=== PATIENT | male | born 1945 | race Two or more races ===

== ENCOUNTER 2023-03-20 17:27 | Outpatient (RCR) | payer OTHER, SELFPAY ==
[2023-03-15 17:44] LABS: Glucose - Point of Care 235 mg/dl (70-99)
[2023-03-15 18:30] LABS: Glucose - Point of Care 214 mg/dl (70-99)
[2023-03-17 17:29] LABS: Glucose - Point of Care 211 mg/dl (70-99)
[2023-03-17 18:17] LABS: Glucose - Point of Care 141 mg/dl (70-99)
[2023-03-20 17:26] LABS: Glucose - Point of Care 276 mg/dl (70-99)
[2023-03-20 18:16] LABS: Glucose - Point of Care 130 mg/dl (70-99)
== END 2023-03-20 23:59 | disposition home or self-care (01) ==
LOC: CRHB 17:27
PROVIDERS: ATTENDING PHYSICIAN Surgery Vascular Surgery; FAMILY PHYSICIAN Internal Medicine Geriatric Medicine
DX: I70.213 Atherosclerosis of native arteries of extremities with intermittent claudication, bilateral legs (principal); I25.10 Atherosclerotic heart disease of native coronary artery without angina pectoris; Z95.1 Presence of aortocoronary bypass graft
CPT/HCPCS: 82962; 93668

== ENCOUNTER 2023-04-20 08:00 | Day surgery (SDC) | payer OTHER, SELFPAY ==
--- NOTE | 2023-04-18 15:46 | PTCARENOTE ---
Dr. Eugene made aware of abnormal EKG dated 10/21/22- no further action requested.
[2023-04-20] VITALS (21 sets, daily range): BP systolic 16–199; BP diastolic 47–107; BMI 22.3
[2023-04-20 08:30] LABS: Hematocrit 36.2 % (39.0-52.0); Hemoglobin 12.3 g/dL (13.0-18.0); Mean Corpuscular Hgb 30.4 pg (27.0-31.0); Mean Corpuscular Volume 89.6 fL (80.0-94.0); Mean Platelet Volume 10.1 fL (7.4-10.4); Platelet Count 216 10^3/uL (130-400); Red Blood Cell Count 4.04 10^6/uL (4.70-6.10); Red Cell Dist. Width 12.7 % (11.5-14.5); White Blood Cell Count 6.9 10^3/uL (4.8-10.8)
[2023-04-20 08:41] LABS: APTT 29.6 Sec (23.4-35.0); INR 1.09; PT 14.1 Sec (11.4-14.6)
[2023-04-20 08:43] LABS: Blood Urea Nitrogen 20 mg/dl (9-20); Calcium 8.8 mg/dl (8.4-10.2); Carbon Dioxide 26 mmol/L (22-30); Chloride 103 mmol/L (98-107); Estimated Creatinine Clearance 58 ml/min; Glucose 136 mg/dl (70-99); Potassium 4.3 mmol/L (3.5-5.1); Sodium 133 mmol/L (135-145); eGFR > 60.00
[2023-04-20 09:00] LABS: Glucose - Point of Care 146 mg/dl (70-99)
[2023-04-20] MEDS: NSS 500 IV (09:30)
--- NOTE | 2023-04-20 10:17 | W.SUR.PREOP ---
Pre-Operative Surgical Note
-
I have examined this patient prior to the performance of the scheduled procedure.
The patient's condition is unchanged from the time of the current History and
Physical and the patient is able to undergo the scheduled procedure.
--- NOTE | 2023-04-20 11:50 | W.SUR.POST ---
Surgical Immediate Post Op
Note
Pre Op Diagnosis: PAD
Post Op Diagnosis: PAD
Procedure Performed: RLE angiogram, right popliteal balloon angioplasty, balloon angioplasty/stent to SFA x3, LLE angiogram
Primary Surgeon: Bobby
Anesthesia: local and sedation
Estimated Blood Loss: <2cc
Fluids: See anesthesia flow sheet
Drains/Shunts: none
Specimens/Cultures: none
Doppler/Duplex/Angio (Y/N): Y
Complications: none
Operative Findings: palp DP right
--- NOTE | 2023-04-20 12:30 | OR.RPT ---
Operative Report
Operative Report
PROCEDURE DATE: 04/20/2023
Preoperative diagnosis: Severe debilitating right calf claudication resulting in significant inactivity.
Postoperative diagnosis: Same
Procedure:
1. Duplex assisted left common femoral artery cannulation.
2. Right lower extremity arteriogram with third order vessel catheterization of right peroneal artery via left common femoral artery puncture.
3. Primary stent placement right SFA x 3 with Cook Zilver 6 mm x 4 cm PTX drug-eluting stents x 3. (Nonoverlapping).
4. Balloon angioplasty of behind knee popliteal artery with 5 mm angioplasty balloon.
5. Left lower extremity arteriogram.
6. Supervision and interpretation.
Surgeon: Bobby
Registered Dental Hygienist: None
Complications: None
Anesthesia: Local, sedation
Fluoroscopy:
12.6 min
58 mGy
13.25 Gy.cm2
Indications for procedure:
Severe debilitating right calf claudication. Discussed risk/benefits of alternatives of angiography versus continued conservative management. Patient felt severely debilitated and wish for more invasive therapy. He understood all wish to proceed.
Description of procedure:
Patient was identified, brought to the operating room. Placed on the table in the supine position. After the adequate administration of anesthesia, the patient was prepped and draped in the standard surgical fashion. A standard preoperative
timeout was undertaken and everybody was in agreement with the plan.
The left common femoral artery was accessed with a micropuncture kit under direct duplex ultrasound guidance. A 5 Syriac sheath was then advanced over a 0.035 inch wire, and a martinez's hook catheter was advanced into the abdominal aorta.
Aortogram and pelvic angiogram was obtained. Findings as follows:
Infrarenal aorta: Patent with distal plaque/luminal irregularity. Likely resulting in at least 40 to 50% stenosis.
Right common iliac artery: Luminal irregularities, but no significant stenosis.
Right external iliac artery: Luminal irregularities, but no significant stenosis.
Left iliac system was not as well-visualized on this angiogram (was prior visualized on prior procedure).
Using a floppy angled hydrophilic wire, the right common femoral artery was cannulated and the catheter was advanced. Right lower extremity arteriogram was obtained. Findings as follows:
Common femoral artery: Patent with no significant stenosis.
Profunda femoris artery: Patent with proximal likely 50 to 60% stenosis. Early collateralization, main profunda distally was relatively small.
Superficial femoral artery: Patent with moderate stenosis about 3 to 4 cm distal to the origin for a segment of about 4 cm. Then diffuse luminal irregularities and then an additional segment of about 4 cm over which there is a moderate to severe
stenosis. Then again some luminal irregularities and plaque, but no significant stenosis until the distal SFA at which point there was a severe near string-like stenosis.
Popliteal artery: Patent with focal behind the knee severe string-like stenosis.
Anterior tibial artery: Patent with no significant stenosis. Dominant runoff vessel to the foot.
Tibial peroneal trunk: Weakly patent.
Peroneal artery: Weakly patent proximally, but then essentially occluded. No good filling distally.
Posterior tibial artery: Chronically occluded.
At this point I selectively then cannulated the superficial femoral artery. I then exchanged for a Storq wire and an up and over 6 Syriac sheath. I gave the patient an appropriate dose of 5000 units of intravenous heparin. Next, under roadmap
assisted guidance I was able to gain wire access through the SFA stenoses initially with a Storq wire and then with the assistance of a CXI catheter and a flopping on hydrophilic wire. Angiogram confirmed as in the true lumen. I then carefully
under roadmap assisted guidance was able to traverse the popliteal artery severe stenosis and then gain wire access into the proximal TP trunk/peroneal artery. I then passed my catheter and exchanged back for a Storq wire. Next I primarily stented
the mid and distal SFA stenoses with 6 mm x 4 cm Zilver PTX stents (nonoverlapping). These were post angioplastied with a 5 mm balloon. I then used the same 5 mm angioplasty balloon to perform angioplasty with prolonged inflation of the popliteal
artery stenosis. Completion angiogram demonstrated excellent result at the treated sites. The more proximal lesion appeared more than just moderate as well as irregular plaque appearing. Therefore, at this point I placed a 6 mm x 4 cm Zilver PTX
primarily here. This was post angioplastied also with a 5 mm balloon. Completion angiogram now demonstrated excellent result. Preserved flow through the runoff. This point is very satisfied. At this point I withdrew my sheath to the left
external iliac artery. Left lower extremity arteriogram demonstrated good puncture in the left common femoral artery. The left SFA stents were patent. There was in-stent restenosis in the proximal SFA that was at least moderate. Then in the mid
SFA stent there was a more significant severe stenosis over the course of about 3 cm. At this point I was very satisfied. Wires and catheters were withdrawn. The sheath was drawn and manual pressure was applied. Patient was given protamine
reverse the heparin. Hemostasis was fully achieved. The patient tolerated the procedure well. Upon completion he had a palpable 2+ right DP pulse.
[2023-04-20 12:40] LABS: Glucose - Point of Care 140 mg/dl (70-99)
--- NOTE | 2023-04-20 13:00 | PTCARENOTE ---
pt. told several times to keep legs straight and leave head on pillow, pt. contnues to raise head , legs bent
--- NOTE | 2023-04-20 13:21 | W.PN.UPDATE ---
Update Note
Progress Note Update
Patient is awake, alert, oriented just moved from recovery room to preop area. In the recovery room he was adamant about being allowed to go to the bathroom to urinate. He just completed a catheterization procedure with manual pressure applied to
the left groin. Standard protocol is flat bedrest for several hours. Patient is insistent on being allowed to go to the bathroom. He was moved to the recovery room in the hope that he could talk to his significant other. She was just brought up
to the room. When I tried to rationally explain to him the reason for flat bedrest, and if needed we could catheterize but would favor flat bedrest, he insists on getting up and going to the bathroom. He understands the risk that could be severe
of significant bleeding in the groin that could mandate urgent operative repair/significant bleeding. He understands all this and wishes to go to the bathroom. His significant other is at the bedside and has not convinced him otherwise.
--- NOTE | 2023-04-20 13:33 | PTCARENOTE ---
1315 Addendum- Su Marshall COD CLERK and Meron Peraza COD CLERK at bedside pt. demanding to leave , attempting to get out of bed, pt. sitting up, pt. explained the importance of keeping legs flat and straight. Pt. taken to laborer chemical processing with Meron FOLEY and Su FOLEY at
bedside and assumed care of pt and will give report to laborer chemical processing RN
--- NOTE | 2023-04-20 13:53 | W.PN.UPDATE ---
Update Note
Progress Note Update
Pt voided in restroom. Pt now being compliant with nursing staff, allowed us to place IV access and monitor leads.
Prior to this pt was belligerent, threatening to staff in PACU, adrian d eleon was called. Security escorted staff with pt to recovery room. Dr Rosales at bedside. Pt non-compliant with laying flat, monitoring or IV access. I was disconnecting pt's IVF for
him to ambulate to bathroom, he pulled away from me which dislodged his IV access.
New IV placed after pt voided.
Report given to pyridine recovery operator.
Pt re-educated often throughout last hour on need for monitoring post-op, IV access, groin hemostasis and post operative plan for his safety.
--- NOTE | 2023-04-20 14:10 | PTCARENOTE ---
upon arrival to patients room for groin check, patient laying flat but knees bent in air. Patient reminded to leave legs flat. HOB was raised 30 degrees per protocol. Patient offered food and drink, patient refused. Will continue to monitor.
--- NOTE | 2023-04-20 14:50 | PTCARENOTE ---
Patient's blood pressure remaining in 190s systolic. This RN contacted Vascular export clerk for PRN medication. Medication was ordered, however when patient was presented with medication, patient refused. RN relayed information to export clerk, current BP is
175/73. Will continue to monitor.
--- NOTE | 2023-04-20 17:13 | PTCARENOTE ---
1500: Upon entering room for procedure site check, pt continues to bend knees/legs, get OOB w/o assistance, voids w/o difficulty. Continues to decline offered food/beverages. Pt and SO again educated about importance of keeping legs straight/flat.
Groin site remains w/o bleeding or hematoma.
At 1615, pt to car, via , with RN x1, without further incident or change. L groin dressing is clean, dry, intact and w/o hematoma. All D/C instructions provided; patient and SO verbalize understanding. All questions addressed.
--- NOTE | 2023-04-21 13:20 | W.PV.INTER ---
VPI Note
Pre Admission Note
Functional Status: Light Work
Ambulation: Ambulate Independently
Pre Op Medications
Pre Op ASA: Yes
Pre Op Statin: Yes
Pre Op JORGE Inhibitor/ARB: No
Pre Op P2y12 Antagonist: Clopidogrel
Pre Op Beta Blockers: No
Pre Op Chronic Anticoagulant: None
Pre Op Cilostazol: No
Post Op Medications
Post Op ASA: Yes
Post Op Statin: Yes
Post Op JORGE Inhibitor/ARB: No
Post Op P2y12 Antagonist: Clopidogrel
Post Op Beta Blockers: No
Post Op Chronic Anticoagulant: None
Post Op Cilostazol: No
== END 2023-04-20 16:15 | disposition home or self-care (01) ==
LOC: CATH 08:00
PROVIDERS: ATTENDING PHYSICIAN Surgery Vascular Surgery; FAMILY PHYSICIAN Internal Medicine Geriatric Medicine
DX: I70.221 Atherosclerosis of native arteries of extremities with rest pain, right leg (principal); J44.9 Chronic obstructive pulmonary disease, unspecified; I10 Essential (primary) hypertension; I25.10 Atherosclerotic heart disease of native coronary artery without angina pectoris; Z95.5 Presence of coronary angioplasty implant and graft; G47.33 Obstructive sleep apnea (adult) (pediatric); E11.9 Type 2 diabetes mellitus without complications; Z79.4 Long term (current) use of insulin; Z79.02 Long term (current) use of antithrombotics/antiplatelets; F17.210 Nicotine dependence, cigarettes, uncomplicated
CPT/HCPCS: 37226; 75625; 75716; 76937; 80048; 82962; 85027; 85610; 85730; 86850; 86900; 86901; C1725; C1769; C1874; C1887; C1894; Q9967

== ENCOUNTER → 2023-05-08 12:00 | Outpatient (REF) | payer OTHER, SELFPAY ==
--- NOTE | 2023-05-02 12:42 | PN.DIAED02 ---
Referral
DSME Class Series Code: [id number]
Referred For: Diabetes Self-Management Training
PHI Release Authorization Form Signed: Yes
Demographic
(1) Type 2 diabetes mellitus with hyperglycemia
Status: Acute Code(s): E11.65 - Type 2 diabetes mellitus with hyperglycemia
Patient's primary language-: Qatari
Education: Advanced college degree
Occupation: Retired
- Social
Primary Support Person: Self
Primary Care Takers: Self
Living Arrangements: Self
- Learning Methods
Preferred Method: Reading, Video
Glycemic Control
- Blood Glucose Monitoring Assessment
Date: 04/28/23
Blood glucose monitoring at home: Yes
Monitor Brands: Other (Dexcom G6)
- Hypoglycemia Assessment
Patient carries glucose source: No
Patient experiences hypoglycemia: Yes
Frequency: 7 or more times per week
Treatment: candy
- Hemoglobin A1c
Date: 03/21/23
A1C Percentage (%): 9.1
Medical History of Diabetes
Previous Diabetes Education: Yes
How long ago?: > 10 years ago
Previous visit with Dietitian: No
Complications/Comorbidity/Specialist: Diabetic Neuropathy, Heart Disease (CABG-2011), Poor circulation, Pulmonary disease (COPD)
Measures
- Anthropometrics
Height: 5 ft 9 in
Actual Weight: 153 lb 6 oz
- Blood Pressure / Pulse
Blood pressure: 148/69
- Diabetes Management
Medical Management for Diabetes: Flu Vaccination (12/2022), Other (Covid-19 vaccine-12/2022)
Self-Care
- Tobacco Usage
Do you now, or have you ever smoked?: Current every day smoker (Rolls his own tobacco)
Amount (per day): Other (20)
- Alcohol & Drugs Usage
Amount/day: Other ('occasional')
- Meals & Dining
Meals & Dining: Patient skips meals: Yes (discussed)
Primary Food Commercial Real Estate Appraiser: Self
Primary Farm Reporter: Self
Dining Out Frequency: 1-3x per week (2)
- Physical Activity
Physical Limitation: Yes (using walking stick-poor leg strength and balance)
Patient participates in physical Activity: No
- Patient-Self Assessment
Diabetes Knowledge: Good
Feelings About Diabetes: Acceptance
General Health: Fair
Importance of Health: Somewhat
Stress Level: High
Diabetes Interferes With:: Travel
Depression Survey Score: 20
Care Plan
- Education Needs
Patient Education Needs: Diabetes disease process, Chronic complications, Acute complications, Medication, Monitoring, Physical activity, Psychosocial Adjustment, Nutritional management, Goal setting & problem solving
Recommended Diabetes Training Program based on assessment: Outpatient Diabetes Education Program
- Plan of Care
Plan of Care:
Most recent A1C 9.1%, wearing a Dexcom 6. Sees SAYRA Neri for diabetes management. Marita Thomas (friend) here as well.Chapin did not answer all the questions and became defensive/argumentative when asked. For example, when asked do you smoke?,
he stated that he rolls his own cigarettes which is better because it doesn't have added chemicals. Discussed the effect of nicotene on blood vessels, 'oh come on!' was his response. When asked how many per day, he explained that he cannot quantify
the number because the size of the cigarettes he is rolling is different from processed cigarettes- then ended his explanation with '20'. He has used an insulin pump in the past (stopped 3 yrs ago) and is waiting for a new Tandem pump. He takes
Novolog, when asked the dose, he stated he was never told a specific dose and calculates the amount in his head. Asked him to explain, he was unable. I asked what his blood sugar was this morning and how much insulin he took. Stated it was 180 mg/dl
and he took 10 units. Then asked what his blood sugar was now- his scanner was reading 79 mg/dl with the arrow trending down. Performed an Accuchek POC with result 68 mg/dl. Provided him with 2 glucose tablets (all that was available) and a shan
james. Asked what he had consumed for breakfast, he did not eat. Explained that if he doesn't eat a meal, he should not take the insulin. States he has numerous hypo events, unable to clarify how many, explained the detriment of hypo on the brain. He
is not receptive to any information ,feels like since he has had diabetes for 35 years that he knows everything. Concerned to send him home without a dose so asked Gustavo FOLEY to speak with him, she did and contacted SAYRA Hoffman. The plan is for him to
take Novolog 10 units 15 minutes before each meal(which he has not been doing). Suggest paying closer attention to the CGM result and arrows showing the trend and to perform a fingerstick if the CGM is showing 80 with an arrow down. To treat with
Juice or soda or Glucose tabs and recheck in 15 minutes. Directions to class given.
--- NOTE | 2023-05-02 13:50 | PN.DIAED04 ---
Education Record
- Education Record
Class Attended: Class 1 (pre registration 04/28/23 for outpt DSME classes starting 05/08/23)
DSME Class Series Code: [id number]
Instructor: Registered Nurse (Rosa M Rm, RN, BSN, [facility] [place])
Class Curriculum:
Outpatient Diabetes Education Program:
Initial Assessment (45 minutes)
Individualized assessment
Develop personal strategies to promote health and behavior change
Development of diabetes self-management support plan
Class Length (mins): 100
Pre-Program Knowledge: Demonstrates competency
Pre-Test Score (%): 95
Goals
- Goal 1
Being Active: Exercise 15 minutes-3 times per week
Goals To Be Evaluated: Exercise 15 mins-3x/week
- Goal 2
Healthy Eating: Follow meal plan
Goals To Be Evaluated: Follow meal plan
--- NOTE | 2023-05-08 15:34 | PN.DIAED04 ---
Education Record
- Education Record
Class Attended: Class 1
DSME Class Series Code: [id number]
Instructor: Nurse Practitioner (CINDY Ambrocio)
Class Length (mins): 120
Post-Class 1 Test Score (%): 94
--- NOTE | 2023-05-08 15:35 | PN.DIAED14 ---
This is to notify you that your patient with diabetes, WILLIAM SHARP ( 1945), has enrolled in our diabetes self-management classes that are being held at [facility].
These classes will include an introduction to diabetes, diet, medication, exercise and prevention of complications. At the end of our class series, you will receive a report of your patient's participation and progress for your records.
Please contact me at the Diabetes Center, , if there is any particular information regarding your patient that might be helpful to me.
Sincerely,
--- NOTE | 2023-05-10 16:35 | PN.DIAED06 ---
Meal Plans - Regular
- Meal Plan
Diabetic Meal Plan Name: 1800 calories
Breakfast - Total Carbohydrate (grams): 45
Breakfast - Starch Carbohydrate: 0
Breakfast - Fruit Carbohydrate: 0
Breakfast - Milk Carbohydrate: 0
Breakfast - Nonstarchy Vegetables: Yes
Breakfast - Meat/Protein: 1
Breakfast - Fat: 2
Morning Snack - Total Carbohydrate (grams): 15
Morning Snack - Starch Carbohydrate: 0
Morning Snack - Fruit Carbohydrate: 0
Morning Snack - Milk Carbohydrate: 0
Morning Snack - Nonstarchy Vegetables: Yes
Morning Snack - Meat/Protein: 0.5
Morning Snack - Fat: 0
Lunch - Total Carbohydrate (grams): 45
Lunch - Starch Carbohydrate: 0
Lunch - Fruit Carbohydrate: 0
Lunch - Milk Carbohydrate: 0
Lunch - Nonstarchy Vegetables: Yes
Lunch - Meat/Protein: 3
Lunch - Fat: 1
Afternoon Snack - Total Carbohydrate (grams): 15
Afternoon Snack - Starch Carbohydrate: 0
Afternoon Snack - Fruit Carbohydrate: 0
Afternoon Snack - Milk Carbohydrate: 0
Afternoon Snack - Nonstarchy Vegetables: Yes
Afternoon Snack - Meat/Protein: 0.5
Afternoon Snack - Fat: 0
Dinner - Total Carbohydrate (grams): 45
Dinner - Starch Carbohydrate: 0
Dinner - Fruit Carbohydrate: 0
Dinner - Milk Carbohydrate: 0
Dinner - Nonstarchy Vegetables: Yes
Dinner - Meat/Protein: 3
Dinner - Fat: 2
Evening Snack - Total Carbohydrate (grams): 15
Evening Snack - Starch Carbohydrate: 0
Evening Snack - Fruit Carbohydrate: 0
Evening Snack - Milk Carbohydrate: 0
Evening Snack - Nonstarchy Vegetables: Yes
Evening Snack - Meat/Protein: 0
Evening Snack - Fat: 0
== END ==
LOC: DES 12:00
PROVIDERS: ATTENDING PHYSICIAN Physician Assistant
DX: E11.65 Type 2 diabetes mellitus with hyperglycemia (principal)
CPT/HCPCS: 99078

== ENCOUNTER → 2023-05-15 12:00 | Outpatient (REF) | payer OTHER, SELFPAY ==
--- NOTE | 2023-05-15 15:18 | PN.DIAED04 ---
Education Record
- Education Record
Class Attended: Class 2
DSME Class Series Code: [id number]
Instructor: Registered Dietitian (Marcelina Quinn, RD, LDN, CDE)
Class Length (mins): 120
== END ==
LOC: DES 12:00
PROVIDERS: ATTENDING PHYSICIAN Physician Assistant
DX: E11.65 Type 2 diabetes mellitus with hyperglycemia (principal)
CPT/HCPCS: 99078

== ENCOUNTER → 2023-05-22 12:00 | Outpatient (REF) | payer OTHER, SELFPAY ==
--- NOTE | 2023-05-30 11:12 | PN.DIAED04 ---
Education Record
- Education Record
Class Attended: Class 3
DSME Class Series Code: [id number]
Instructor: Registered Dietitian (Marcelina Quinn, RD, LDN, CDE)
Class Length (mins): 120
== END ==
LOC: DES 12:00
PROVIDERS: ATTENDING PHYSICIAN Physician Assistant
DX: E11.65 Type 2 diabetes mellitus with hyperglycemia (principal)
CPT/HCPCS: 99078

== ENCOUNTER → 2023-05-25 15:06 | Outpatient (REF) | payer OTHER, SELFPAY | LOC: RAD 15:06 | PROVIDERS: ATTENDING PHYSICIAN Surgery Vascular Surgery; FAMILY PHYSICIAN Internal Medicine Geriatric Medicine | DX: I73.9 Peripheral vascular disease, unspecified (principal) | CPT/HCPCS: 93922; 93925 ==

== ENCOUNTER → 2023-05-29 12:00 | Outpatient (REF) | payer OTHER, SELFPAY ==
--- NOTE | 2023-06-05 14:47 | PN.DIAED04 ---
Education Record
- Education Record
Class Attended: Class 4
DSME Class Series Code: [id number]
Instructor: Nurse Practitioner (CINDY Ambrocio)
Class Length (mins): 120
== END ==
LOC: DES 12:00
PROVIDERS: ATTENDING PHYSICIAN Physician Assistant
DX: E11.65 Type 2 diabetes mellitus with hyperglycemia (principal)
CPT/HCPCS: 99078

== ENCOUNTER → 2023-06-05 12:00 | Outpatient (REF) | payer OTHER, SELFPAY ==
--- NOTE | 2023-06-06 14:57 | PN.DIAED16 ---
This is to notify you that your patient with diabetes, WILLIAM SHARP ( 1945), has attended the entire series of Diabetes Self-Management Education Classes.
Class 1 (120 minutes): Diabetes Overview - monitoring, stress/psychosocial adjustment, support, goal setting
Class 2 (120 minutes): Meal Planning - serving sizes, menu plans
Class 3 (120 minutes): Introduction to Carbohydrate Counting, Analyzing Food Labels
Class 4 (120 minutes): Medication, Exercise and Activity
Class 5 (120 minutes): Sick Day Management, Strategies to Reduce Complications, Problem Solving, Resources
The following behavioral goals were identified:
Exercise 15 mins-3x/week
Follow meal plan
A follow-up call will be made within three to six months to evaluate attainment of these goals and to check post-program Hemoglobin A1c and overall progress. All class participants are encouraged to contact me if I can be any further assistance in
learning how to manage their diabetes.
Sincerely,
--- NOTE | 2023-06-08 09:34 | PN.DIAED04 ---
Education Record
- Education Record
Class Attended: Class 5
DSME Class Series Code: [id number]
Instructor: Nurse Practitioner (CINDY Ambrocio)
Class Curriculum:
Outpatient Diabetes Education Program:
Class 5 (120 minutes)
Prevent, detect, and treat acute complications
Prevent, detect, and treat chronic complications through risk reduction
Develop personal strategies to address psychosocial issues and concerns
Development of diabetes self-management support plan
Letter to physician with DSMS plan attached sent
Class Length (mins): 120
Post-Test Score (%): 88
Post-Program Assessment
- Post-Program Assessment
Actual Weight: 0 oz (patient refused)
Blood pressure: 0/0 (patient refused)
Reviewing Previous Goals?: Yes
Pre-Program Depression Survey Score: 20 (patient refused to fill out post depression)
- Goals 1 Evaluation
Goals To Be Evaluated: Exercise 15 mins-3x/week
- Goals 2 Evaluation
Goals To Be Evaluated: Follow meal plan
--- NOTE | 2023-06-08 13:43 | PN.DIAED18 ---
Addendum entered and electronically signed by Maria Eugenia Shannon 06/08/23 13:49:
Your patient, WILLIAM SHARP ( 1945), scored '20' on the pre-depression screening, which indicated severe depression; Your patient did not complete the last class so we have no post-depression score.
Original Note:
Depression is associated with poor diabetes self-management and perceived inability to control diabetes.
After careful consideration and multiple layers of input, the [facility]'s outpatient diabetes education program has implemented a depression screening tool. The tool is the PHQ-9 Quick Depression Assessment.
Each patient who attends the outpatient diabetes education class responds to 9 questions before the first class starts. At the completion of the 5 classes, each patient again responds to the same 9 questions. In theory, after completing the program
the hope is that the patient will feel somewhat more capable of diabetes self-management.
Your patient, WILLIAM SHARP ( 1945), scored '20' on the pre-depression screening, which indicated mild/moderate/severe depression; Your patient did not complete the last class so we have no post-depression score.
If you require any additional information, please do not hesitate to contact me at [phone].
Sincerely,
== END ==
LOC: DES 12:00
PROVIDERS: ATTENDING PHYSICIAN Physician Assistant
DX: E11.65 Type 2 diabetes mellitus with hyperglycemia (principal)
CPT/HCPCS: 99078

== ENCOUNTER → 2023-07-26 12:19 | Outpatient (REF) | payer OTHER, SELFPAY ==
[2023-07-26 14:06] LABS: % Basophils 0.6 % (0-2); % Eosinophils 4.3 % (0-6); % Immature Granulocytes 0.3 % (0-0.5); % Lymphocytes 17.3 % (20.5-51.1); % Monocytes 7.7 % (1.7-9.3); % Neutrophils 69.8 % (42.2-75.2); Absolute Eosinophils 0.3 10^3/uL (0-0.7); Absolute Lymphocytes 1.2 10^3/uL (1.2-3.4); Absolute Monocytes 0.5 10^3/uL (0.1-0.6); Absolute Neutrophils 4.7 10^3/uL (1.4-6.5); Hematocrit 37.2 % (39.0-52.0); Hemoglobin 12.3 g/dL (13.0-18.0); Mean Corp Hgb Conc. 33.1 g/dL (33.0-37.0); Mean Corpuscular Hgb 29.6 pg (27.0-31.0); Mean Corpuscular Volume 89.4 fL (80.0-94.0); Mean Platelet Volume 10.5 fL (7.4-10.4); Nucleated Red Blood Cells % 0 % (-); Platelet Count 196 10^3/uL (130-400); Red Blood Cell Count 4.16 10^6/uL (4.70-6.10); Red Cell Dist. Width 13.3 % (11.5-14.5); White Blood Cell Count 6.7 10^3/uL (4.8-10.8)
[2023-07-26 14:34] LABS: Glycohemoglobin (HgbA1c) 7.5 % (4.0-5.6)
[2023-07-26 14:42] LABS: ALT (SGPT) 16 U/L (0-50); AST (SGOT) 29 U/L (17-59); Albumin 3.9 g/dl (3.5-5.0); Alkaline Phosphatase 70 U/L (38-126); Blood Urea Nitrogen 21 mg/dl (9-20); Calcium 9.4 mg/dl (8.4-10.2); Carbon Dioxide 26 mmol/L (22-30); Chloride 104 mmol/L (98-107); Glucose 84 mg/dl (70-99); HDL Cholesterol 58 mg/dl; LDL Cholesterol, Calculated 75 mg/dl; Potassium 5.3 mmol/L (3.5-5.1); Sodium 137 mmol/L (135-145); Total Bilirubin 0.7 mg/dl (0.2-1.3); Total Cholesterol 148 mg/dl (50-199); Total Protein 6.6 g/dl (6.3-8.2); Triglyceride 75 mg/dl (10-149); Very Low Density Lipoprotein 15 mg/dl (0-30); eGFR > 60.00
== END ==
LOC: REG 12:19
PROVIDERS: ATTENDING PHYSICIAN Physician Assistant; FAMILY PHYSICIAN Nurse Practitioner Primary Care
DX: E10.65 Type 1 diabetes mellitus with hyperglycemia (principal)
CPT/HCPCS: 36415; 80053; 80061; 83036; 85025

== ENCOUNTER → 2023-12-18 10:59 | Outpatient (REF) | payer OTHER, SELFPAY ==
[2023-12-18 11:45] LABS: % Basophils 0.4 % (0-2); % Eosinophils 4.2 % (0-6); % Immature Granulocytes 0.3 % (0-0.5); % Lymphocytes 14.6 % (20.5-51.1); % Monocytes 8.5 % (1.7-9.3); Absolute Eosinophils 0.3 10^3/uL (0-0.7); Absolute Lymphocytes 1.1 10^3/uL (1.2-3.4); Absolute Monocytes 0.6 10^3/uL (0.1-0.6); Absolute Neutrophils 5.4 10^3/uL (1.4-6.5); Hematocrit 37.5 % (39.0-52.0); Hemoglobin 12.6 g/dL (13.0-18.0); Mean Corp Hgb Conc. 33.6 g/dL (33.0-37.0); Mean Corpuscular Hgb 29.2 pg (27.0-31.0); Nucleated Red Blood Cells % 0 % (-); Platelet Count 221 10^3/uL (130-400); Red Blood Cell Count 4.31 10^6/uL (4.70-6.10); Red Cell Dist. Width 12.8 % (11.5-14.5); White Blood Cell Count 7.5 10^3/uL (4.8-10.8)
[2023-12-18 12:28] LABS: Iron 50 ug/dl (49-181)
[2023-12-18 12:38] LABS: Percent Saturation 17 % (20-50); Total Iron Binding Capacity 284 ug/dl (261-462)
[2023-12-18 12:42] LABS: Vitamin D, 25-OH*** 22.9 ng/mL (30-80)
[2023-12-18 13:00] LABS: Ferritin 44.6 ng/ml (17.9-464.0)
[2023-12-18 13:32] LABS: Folate 13.2 ng/ml (2.76-20); Vitamin B12 563 pg/ml (239-931)
== END ==
LOC: REG 10:59
PROVIDERS: ATTENDING PHYSICIAN Nurse Practitioner Primary Care; FAMILY PHYSICIAN Internal Medicine Geriatric Medicine; REFERRING PHYSICIAN Surgery Vascular Surgery
DX: F17.210 Nicotine dependence, cigarettes, uncomplicated (principal); I10 Essential (primary) hypertension; D64.9 Anemia, unspecified; Z79.899 Other long term (current) drug therapy; E55.9 Vitamin D deficiency, unspecified; I73.9 Peripheral vascular disease, unspecified
CPT/HCPCS: 36415; 82306; 82607; 82728; 82746; 83540; 83550; 85025; 93922; 93925

== ENCOUNTER 2024-01-08 06:13 | Day surgery (SDC) | payer OTHER, SELFPAY ==
[2024-01-08] VITALS (25 sets, daily range): BP systolic 90–155; BP diastolic 34–92; BMI 22.2
[2024-01-08 07:08] LABS: Glucose - Point of Care 126 mg/dl (70-99)
[2024-01-08 07:26] LABS: Hematocrit 34.5 % (39.0-52.0); Hemoglobin 11.9 g/dL (13.0-18.0); Mean Corp Hgb Conc. 34.5 g/dL (33.0-37.0); Mean Corpuscular Hgb 29.9 pg (27.0-31.0); Mean Corpuscular Volume 86.7 fL (80.0-94.0); Mean Platelet Volume 9.5 fL (7.4-10.4); Platelet Count 222 10^3/uL (130-400); Red Blood Cell Count 3.98 10^6/uL (4.70-6.10); Red Cell Dist. Width 13.1 % (11.5-14.5); White Blood Cell Count 10.3 10^3/uL (4.8-10.8)
[2024-01-08 07:33] LABS: INR 1.05; PT 13.5 Sec (11.4-14.6)
[2024-01-08 07:34] LABS: APTT 30.9 Sec (23.4-35.0)
[2024-01-08 07:39] LABS: Blood Urea Nitrogen 18 mg/dl (9-20); Calcium 9.1 mg/dl (8.4-10.2); Carbon Dioxide 22 mmol/L (22-30); Chloride 104 mmol/L (98-107); Estimated Creatinine Clearance 72 ml/min; Glucose 138 mg/dl (70-99); Potassium 4.6 mmol/L (3.5-5.1); Sodium 140 mmol/L (135-145); eGFR > 60.00
--- NOTE | 2024-01-08 08:59 | W.SUR.POST ---
Surgical Immediate Post Op
Note
Pre Op Diagnosis: PAD
Post Op Diagnosis: PAD
Procedure Performed: Left lower extremity arteriogram, balloon and stent in-stent restenosis as well as above-knee popliteal occlusive disease
Primary Surgeon: Bobby
Anesthesia: Local and sedation
Estimated Blood Loss: <2cc
Fluids: see anesthesia flowsheet
Drains/Shunts: none
Specimens/Cultures: none
Doppler/Duplex/Angio (Y/N): Y
Complications: none
Operative Findings: Successful stenting
[2024-01-08 09:33] LABS: Glucose - Point of Care 178 mg/dl (70-99)
[2024-01-08] MEDS: NSS 500 IV (10:01)
== END 2024-01-08 14:45 | disposition home or self-care (01) ==
LOC: CATH 06:13
PROVIDERS: ATTENDING PHYSICIAN Surgery Vascular Surgery; FAMILY PHYSICIAN Nurse Practitioner Primary Care
DX: I70.222 Atherosclerosis of native arteries of extremities with rest pain, left leg (principal); T82.856D Stenosis of peripheral vascular stent, subsequent encounter; Y83.9 Surgical procedure, unspecified as the cause of abnormal reaction of the patient, or of later complication, without mention of misadventure at the time of the procedure; J44.9 Chronic obstructive pulmonary disease, unspecified; E11.9 Type 2 diabetes mellitus without complications; F17.210 Nicotine dependence, cigarettes, uncomplicated; Z79.899 Other long term (current) drug therapy; E78.00 Pure hypercholesterolemia, unspecified
CPT/HCPCS: 37226; 75625; 75710; 80048; 82962; 85027; 85610; 85730; 86850; 86900; 86901; 93005; C1725; C1769; C1874; C1887; C1894; C2623; Q9967

== ENCOUNTER 2024-01-09 08:25 | Inpatient (IN) | payer OTHER, SELFPAY ==
[2024-01-09] VITALS (19 sets, daily range): BP systolic 103–177; BP diastolic 40–92; BMI 24.1; BMI 23.4
[2024-01-09 03:41] LABS: % Basophils 0.1 % (0-2); % Eosinophils 0.1 % (0-6); % Immature Granulocytes 0.4 % (0-0.5); % Lymphocytes 4.6 % (20.5-51.1); % Monocytes 7.7 % (1.7-9.3); % Neutrophils 87.1 % (42.2-75.2); Absolute Immature Granulocytes 0.1 10^3/uL (0-0.05); Absolute Lymphocytes 0.7 10^3/uL (1.2-3.4); Absolute Monocytes 1.1 10^3/uL (0.1-0.6); Absolute Neutrophils 12.4 10^3/uL (1.4-6.5); Hematocrit 33.9 % (39.0-52.0); Hemoglobin 11.5 g/dL (13.0-18.0); Mean Corp Hgb Conc. 33.9 g/dL (33.0-37.0); Mean Corpuscular Hgb 29.4 pg (27.0-31.0); Mean Corpuscular Volume 86.7 fL (80.0-94.0); Mean Platelet Volume 9.6 fL (7.4-10.4); Nucleated Red Blood Cells % 0 % (-); Platelet Count 217 10^3/uL (130-400); Red Blood Cell Count 3.91 10^6/uL (4.70-6.10); Red Cell Dist. Width 13.2 % (11.5-14.5); White Blood Cell Count 14.2 10^3/uL (4.8-10.8)
[2024-01-09 03:49] LABS: ALT (SGPT) 25 U/L (0-50); AST (SGOT) 52 U/L (17-59); Albumin 4.3 g/dl (3.5-5.0); Alkaline Phosphatase 86 U/L (38-126); Blood Urea Nitrogen 25 mg/dl (9-20); Calcium 8.7 mg/dl (8.4-10.2); Carbon Dioxide 21 mmol/L (22-30); Chloride 103 mmol/L (98-107); Estimated Creatinine Clearance 60 ml/min; Glucose 290 mg/dl (70-99); Potassium 5.1 mmol/L (3.5-5.1); Sodium 139 mmol/L (135-145); Total Bilirubin 0.3 mg/dl (0.2-1.3); Total Protein 6.9 g/dl (6.3-8.2); eGFR > 60.00
--- NOTE | 2024-01-09 05:23 | ED.GENMED ---
History of Present Illness
<GEMA Blunt - Last Filed: 01/12/24 22:11>
General
Chief Complaint: Breathing Problem
Source: patient and significant other
Exam Limitations: none
Time Seen by Provider: 01/09/24 05:05
Nursing documentation reviewed up to this point in time: agreed with
History of Present Illness
History of Present Illness:
Patient is a 78yo M w/ extensive PMH including COPD and leg in stent placed yesterday who presents to ED for SOB. Pt was feeling fine after discharge until calling partner at 2am stating he can't breath. Pt is unable to provide a clear hx of what
occurred before coming to ER. States he was smoking medical marijuana when coughing and SOB started. States he thinks he smoked too much. Also notes that he recently switched to marijuana vaporizer cartridge and has been using that for a few days
which he is not used to. He first reported arm weakness which led him to take inhaler, NTG, and 4 statin. He now reports full body weakness. States body feels 'floppy'. Reports he cannot speak or move w/o difficulty due to SOB and weakness. Notes
his insulin pumped got clogged so he has not had nightly insulin. Glucose currently 300.
Past History
<GEMA Blunt - Last Filed: 01/12/24 22:11>
Past History
ED Past Medical History: CAD, COPD and NIDDM
ED Past Surgical History: Cardiac
Patient has exhibited threatening behavior?: Yes
Date of threatening behavior? (updated with each occurrence): 10/20/22 (04/20/23)
Social History
Tobacco: Smoker
Alcohol: Daily
Drug: None
Personal:
Living: with family
Review of Systems
<GEMA Blunt - Last Filed: 01/12/24 22:11>
Review of Systems
Constitutional: Reports fatigue; Denies fever or chills
Respiratory: Reports cough and trouble breathing
Cardiac: Denies chest pain or palpitations
ABD/GI: Denies abdominal pain, nausea, vomiting, diarrhea or constipated
: Denies dysuria
Musculoskeletal: Denies joint pain or muscle pain
Neurological: Reports weakness; Denies dizzy, headache or numbness
Phy Exam
<GEMA Blunt - Last Filed: 01/12/24 22:11>
General Physical Exam
General Presentation: no apparent distress
General age: appears stated age
General Skin: warm and dry
General Habitus: elderly
General Mental: alert and angry
Cardiovascular Exam
Cardiovascular Exam: regular rate/rhythm, no edema, no gallop and no murmur
Pulmonary Exam
Pulmonary Exam: lungs clear, no respiratory distress, no rales, no crackles, no rhonchi, no wheezing and other (pt does not appear SOB. speaking in full sentences. )
Neurological Exam
Neurological Exam: alert, oriented x3 and speech normal
Scores
<GEMA Blunt - Last Filed: 01/12/24 22:11>
Heart Failure Risk
Heart Failure Risk Score: Yes
History of Stroke or TIA: No
History of intubation for respiratory distress: No
Heart rate on ED arrival >/= 110: No
SaO2 <90% on arrival on room air: No
HR >/=110 during 3min walk test (or too ill to perform test): Yes
ECG has acute ischemic changes: No
Urea >/=12mmol/L (BUN 33.6mg/dL): No
Serum CO2>/=35mmol/L: No
Troponin I or T elevated to NE Level (0.4mg/dL): Yes
HF Risk Score: 4
Admission Status: HIGH RISK 26.1% Consider SNF treatment or admission to hospital
<Sandy Blank DO - Last Filed: 01/09/24 07:31>
Heart Failure Risk
NT-proBNP >/=5,000ng/L (5,000pg/ml): No
HF Risk Score: 4
Admission Status: HIGH RISK 26.1% Consider SNF treatment or admission to hospital
Course
<ST Jose RaulPA - Last Filed: 01/12/24 22:11>
Orders/Labs/Results
Orders:
Orders
01/09/24 03:16
EKG [Electrocardiogram (*1)] Urgent
Reason for Study: Tachycardia
01/09/24 03:25
Complete Blood Count/With Diff Urgent
Comprehensive Metabolic Panel Urgent
01/09/24 05:41
Ipratropium/Albuterol Sulfate [Duoneb] 3 ml INH R NOW ONE
01/09/24 05:42
Add On- LAB Urgent
Tests Added?: BNP
01/09/24 05:43
CR Chest - 2 Views Urgent
Comment:
Reason For Exam: COUGH, SOB
01/09/24 05:45
NT-proBNP Urgent
Comment: ADD ON
Troponin I Urgent
01/09/24 05:52
COVID-19 Antigen Urgent
Source: Nasal Swab
Influenza A+B Rapid Molecular Urgent
MALCOLM Source: Nasal Swab
Specimen Description:
01/09/24 07:26
CARDIOLOGY CONSULT Routine
Consulting Provider: Antony Shetty
Was physician already notified: Yes
01/09/24 07:30
Furosemide [Lasix] 40 mg IV NOW STA
01/09/24 08:01
Admit/Transfer Patient As Directed
Co-Sign Provider:
Level of Care: Inpatient admission
Assign to:: Telemetry
Physician / Group: Jose/hospitalist
Diagnosis: SOB
Reason for Telemetry: Chest Pain syndromes
Date to Stop Telemetry: 01/11/24
Time to Stop Telemetry: 11:00
Reason for Hospitalization: SOB
Expected length of stay greater than two midnights?: Yes
ELOS- Estimated Length of Stay in days: 3
I certify the patient meets the requirements for IP care: Yes
PRN Pain Medication Management As Directed
May give lesser potent ordered pain med per pt: Yes
preference::
Protocol:: Medication orders for pain may be administered in a
manner that supports deferring to patient preference
when the pt is:
- Requesting an ordered lesser potent pain medication.
Least to most potent pain medications are defined
as: acetaminophen < NSAID < tramadol < opioids
(morphine, oxycodone, hydromorphone).
- Requesting a lesser dose of the same medication IF
ORDERED.
- Requesting a less intrusive route of administration
if both routes are prescribed by the provider (PO <
IV).
01/09/24 08:04
Code Status As Directed
Resuscitation Status: Full Code
01/09/24 08:11
D-Dimer Urgent
PTT Urgent
Comment: ADD ON
Procalcitonin Routine
PCT Algorithmm Indication: Respiratory
01/09/24 08:29
Dextrose 50%-Water [Dextrose 50% Syringe] 12.5 grams IV [id number] PRN
Docusate Sodium [Colace] 100 mg PO BIDPRN PRN
Glucagon [GlucaGen] 1 mg IM PRN PRN
Nitroglycerin Sublingual [Nitrostat (Sublingual)] 0.4 mg SL [id number] PRN
Patient Own Insulin Pump 1 units SC .VIA PUMP NOVOLOG
01/09/24 08:29
Echo 2D MMode Color/Doppler Routine
Reason for Study: chest pain
Diabetes Management by Nurse Practitioner Routine
Consulting Provider: La Nena Hammond
Was provider already notified?: Yes
WOUND/OSTOMY CONSULT Routine
Reason for Consult: foot ulcers
Activity As Directed
Activity Level: As Tolerated
Bedside Glucose Monitoring As Directed
Frequency: AC&HS
Additional Instructions:: Change to q6h if pt on TPN, tube feeding or not eating
INT (Intravenous Needle Therapy) As Directed
Comment: maintain peripheral IV access
Intake/ Output As Directed
Frequency: Per unit guidelines
Vital Signs As Directed
Frequency: q4h
Weight As Directed
Frequency: Daily
DX Deep Vein Thrombosis Video Routine
01/09/24 10:07
Glycohemoglobin (HgbA1c) Routine
01/09/24 11:30
Insulin Aspart Corrective Low [Novolog Flexpen-Low Resistance] See Protocol SC AC
01/09/24 12:00
Electrocardiogram (*1) Q6H
Reason for Study: Chest Pain
Comment: at admission and Q3H for total of 3, to be done with each troponin
01/09/24 14:40
Troponin I Q3H
Comment: at admit & Q3H for 3 total including ED draws, obtain ECG with each level
01/09/24 18:00
Electrocardiogram (*1) Q6H
Reason for Study: Chest Pain
Comment: at admission and Q3H for total of 3, to be done with each troponin
Enoxaparin Sodium [Lovenox] 40 mg SC QPM
01/10/24 00:00
Electrocardiogram (*1) Q6H
Reason for Study: Chest Pain
Comment: at admission and Q3H for total of 3, to be done with each troponin
01/10/24 03:50
Basic Metabolic Panel IN AM
Complete Blood Count/No Diff IN AM
01/10/24 08:00
Aspirin Low Dose EC [Aspir Low (Enteric Coated)] 81 mg PO DAILY
Atorvastatin [Lipitor] 10 mg PO DAILY
Clopidogrel Bisulfate [Plavix] 75 mg PO DAILY
01/11/24 05:09
Basic Metabolic Panel IN AM
Complete Blood Count/No Diff IN AM
01/12/24 06:28
Basic Metabolic Panel IN AM
Complete Blood Count/No Diff IN AM
Abnormal Lab Results
01/09/24 01/09/24 01/09/24
03:25 05:45 08:11
WBC 14.2 H 10^3/uL
(4.8-10.8)
RBC 3.91 L 10^6/uL
(4.70-6.10)
Hgb 11.5 L g/dL
(13.0-18.0)
Hct 33.9 L %
(39.0-52.0)
Abs Immat Gran (auto) 0.1 H 10^3/uL
(0-0.05)
Absolute Neuts (auto) 12.4 H 10^3/uL
(1.4-6.5)
Absolute Lymphs (auto) 0.7 L 10^3/uL
(1.2-3.4)
Absolute Monos (auto) 1.1 H 10^3/uL
(0.1-0.6)
Neutrophils % 87.1 H %
(42.2-75.2)
Lymphocytes % 4.6 L %
(20.5-51.1)
D-Dimer 1.70 H ug/mlFEU
(0.00-0.50)
Carbon Dioxide 21 L mmol/L
(22-30)
BUN 25 H mg/dl
(9-20)
Glucose 290 H mg/dl
(70-99)
Troponin I 2.410 H* ng/ml
01/09/24 03:25
01/09/24 03:25
Vital Signs
Initial and Last Documented VS:
Initial Vital Signs
BP Pulse Ox
128/59 96
01/09/24 03:07 01/09/24 03:07
Last Documented Vital Signs
Temp Pulse Resp BP Pulse Ox
97.7 F 76 18 111/56 96
01/12/24 06:56 01/12/24 10:00 01/12/24 06:56 01/12/24 06:50 01/12/24 09:52
<Sandy Blank, DO - Last Filed: 01/09/24 07:31>
Orders/Labs/Results
Orders:
Orders
01/09/24 03:16
EKG [Electrocardiogram (*1)] Urgent
Reason for Study: Tachycardia
01/09/24 03:25
Complete Blood Count/With Diff Urgent
Comprehensive Metabolic Panel Urgent
01/09/24 05:41
Ipratropium/Albuterol Sulfate [Duoneb] 3 ml INH R NOW ONE
01/09/24 05:42
Add On- LAB Urgent
Tests Added?: BNP
01/09/24 05:43
CR Chest - 2 Views Urgent
Comment:
Reason For Exam: COUGH, SOB
01/09/24 05:45
NT-proBNP Urgent
Comment: ADD ON
Troponin I Urgent
01/09/24 05:52
COVID-19 Antigen Urgent
Source: Nasal Swab
Influenza A+B Rapid Molecular Urgent
MALCOLM Source: Nasal Swab
Specimen Description:
01/09/24 07:26
CARDIOLOGY CONSULT Routine
Consulting Provider: Antony Shetty
Was physician already notified: Yes
01/09/24 07:30
Furosemide [Lasix] 40 mg IV NOW STA
01/09/24 08:01
Admit/Transfer Patient As Directed
Co-Sign Provider:
Level of Care: Inpatient admission
Assign to:: Telemetry
Physician / Group: Jose/hospitalist
Diagnosis: SOB
Reason for Telemetry: Chest Pain syndromes
Date to Stop Telemetry: 01/11/24
Time to Stop Telemetry: 11:00
Reason for Hospitalization: SOB
Expected length of stay greater than two midnights?: Yes
ELOS- Estimated Length of Stay in days: 3
I certify the patient meets the requirements for IP care: Yes
PRN Pain Medication Management As Directed
May give lesser potent ordered pain med per pt: Yes
preference::
Protocol:: Medication orders for pain may be administered in a
manner that supports deferring to patient preference
when the pt is:
- Requesting an ordered lesser potent pain medication.
Least to most potent pain medications are defined
as: acetaminophen < NSAID < tramadol < opioids
(morphine, oxycodone, hydromorphone).
- Requesting a lesser dose of the same medication IF
ORDERED.
- Requesting a less intrusive route of administration
if both routes are prescribed by the provider (PO <
IV).
01/09/24 08:04
Code Status As Directed
Resuscitation Status: Full Code
01/09/24 08:11
D-Dimer Urgent
PTT Urgent
Comment: ADD ON
Procalcitonin Routine
PCT Algorithmm Indication: Respiratory
01/09/24 08:29
Dextrose 50%-Water [Dextrose 50% Syringe] 12.5 grams IV [id number] PRN
Docusate Sodium [Colace] 100 mg PO BIDPRN PRN
Glucagon [GlucaGen] 1 mg IM PRN PRN
Nitroglycerin Sublingual [Nitrostat (Sublingual)] 0.4 mg SL [id number] PRN
Patient Own Insulin Pump 1 units SC .VIA PUMP NOVOLOG
01/09/24 08:29
Echo 2D MMode Color/Doppler Routine
Reason for Study: chest pain
Diabetes Management by Nurse Practitioner Routine
Consulting Provider: La Nena Hammond
Was provider already notified?: Yes
WOUND/OSTOMY CONSULT Routine
Reason for Consult: foot ulcers
Activity As Directed
Activity Level: As Tolerated
Bedside Glucose Monitoring As Directed
Frequency: AC&HS
Additional Instructions:: Change to q6h if pt on TPN, tube feeding or not eating
INT (Intravenous Needle Therapy) As Directed
Comment: maintain peripheral IV access
Intake/ Output As Directed
Frequency: Per unit guidelines
Vital Signs As Directed
Frequency: q4h
Weight As Directed
Frequency: Daily
DX Deep Vein Thrombosis Video Routine
01/09/24 10:07
Glycohemoglobin (HgbA1c) Routine
01/09/24 11:30
Insulin Aspart Corrective Low [Novolog Flexpen-Low Resistance] See Protocol SC AC
01/09/24 12:00
Electrocardiogram (*1) Q6H
Reason for Study: Chest Pain
Comment: at admission and Q3H for total of 3, to be done with each troponin
01/09/24 14:40
Troponin I Q3H
Comment: at admit & Q3H for 3 total including ED draws, obtain ECG with each level
01/09/24 18:00
Electrocardiogram (*1) Q6H
Reason for Study: Chest Pain
Comment: at admission and Q3H for total of 3, to be done with each troponin
Enoxaparin Sodium [Lovenox] 40 mg SC QPM
01/10/24 00:00
Electrocardiogram (*1) Q6H
Reason for Study: Chest Pain
Comment: at admission and Q3H for total of 3, to be done with each troponin
01/10/24 03:50
Basic Metabolic Panel IN AM
Complete Blood Count/No Diff IN AM
01/10/24 08:00
Aspirin Low Dose EC [Aspir Low (Enteric Coated)] 81 mg PO DAILY
Atorvastatin [Lipitor] 10 mg PO DAILY
Clopidogrel Bisulfate [Plavix] 75 mg PO DAILY
01/11/24 05:09
Basic Metabolic Panel IN AM
Complete Blood Count/No Diff IN AM
01/12/24 06:28
Basic Metabolic Panel IN AM
Complete Blood Count/No Diff IN AM
Abnormal Lab Results
01/09/24 01/09/24 01/09/24
03:25 05:45 08:11
WBC 14.2 H 10^3/uL
(4.8-10.8)
RBC 3.91 L 10^6/uL
(4.70-6.10)
Hgb 11.5 L g/dL
(13.0-18.0)
Hct 33.9 L %
(39.0-52.0)
Abs Immat Gran (auto) 0.1 H 10^3/uL
(0-0.05)
Absolute Neuts (auto) 12.4 H 10^3/uL
(1.4-6.5)
Absolute Lymphs (auto) 0.7 L 10^3/uL
(1.2-3.4)
Absolute Monos (auto) 1.1 H 10^3/uL
(0.1-0.6)
Neutrophils % 87.1 H %
(42.2-75.2)
Lymphocytes % 4.6 L %
(20.5-51.1)
D-Dimer 1.70 H ug/mlFEU
(0.00-0.50)
Carbon Dioxide 21 L mmol/L
(22-30)
BUN 25 H mg/dl
(9-20)
Glucose 290 H mg/dl
(70-99)
Troponin I 2.410 H* ng/ml
01/09/24 03:25
01/09/24 03:25
Vital Signs
Initial and Last Documented VS:
Initial Vital Signs
BP Pulse Ox
128/59 96
01/09/24 03:07 01/09/24 03:07
Last Documented Vital Signs
Temp Pulse Resp BP Pulse Ox
97.7 F 76 18 111/56 96
01/12/24 06:56 01/12/24 10:00 01/12/24 06:56 01/12/24 06:50 01/12/24 09:52
<GEMA Blunt - Last Filed: 01/12/24 22:11>
MDM/Problems Addressed
Differential Diagnosis Includes:
COPD exacerbation, marijuana intoxication, PNA
<GEMA Blunt - Last Filed: 01/12/24 22:11>
*Critical Care Note
Total Time (30-74mins, 75-104mins- exclusive of procedures): Not Applicable
<Sandy Blank DO - Last Filed: 01/09/24 07:31>
*Pulse Oximetry
Patient hypoxic: no
*EKG
Interpreted by ED Provider?: Yes
Comparison EKG: no changes (Unchanged from previous January 08, 2024-yesterday save for heart rate is increased from 75 to now 96)
Rate: normal
Rhythm: sinus
[place]: normal axis
Interval: normal interval
QRS Pattern: poor R-wave progression
Ischemia: non-specific ST changes
*Procurement Manager Interpretation
Rate: normal
Interpretation: normal
Rhythm: sinus
ED Attending Note
<GEMA Blunt - Last Filed: 01/12/24 22:11>
-
Portions of this chart may have been created with voice recognition software.� Occasional wrong word or��sound alike� substitutions may have occurred due to the inherent limitations of voice recognition software.
<Sandy Blank, DO - Last Filed: 01/09/24 07:31>
ED Attending Note
Patient seen and examined by attending physician: Yes
I performed the substantive portion of visit, reviewed & personally made and approve the management plan that is documented in note by myself or NICOLE.: Yes
ED Attending Note:
This is a 78-year-old gentleman with history of peripheral vascular disease, insulin requiring diabetes, hypertension, hyperlipidemia, CAD, COPD. He continues to smoke cigarettes as well as marijuana.
He has history of in-stent restenosis of the left SFA, follows with Dr. Rosales and underwent arteriogram with balloon angioplasty and stent placement of the left SFA yesterday.
Patient reports procedure went uneventfully and he was feeling well upon discharge to home but tonight he developed abrupt onset of cough, shortness of breath and he is unsure if this is related to smoking too much but unrelieved with albuterol
inhaler, unrelieved with nitroglycerin, unrelieved with aspirin.
He does admit to mild cough and posterior throat irritation that began 2 days ago but has not had a fever nor chills. He denies chest pain. No leg pain or swelling.
No close contacts with similar symptoms.
He arrives via EMS and did receive DuoNeb nebulizer en route. Questionable mild improvement. Prehospital room air pulse ox reportedly 95%.
Moderate harsh nonproductive cough noted initially, has markedly improved since arrival.
He has CGM as well as insulin pump but admits that his insulin pump became dislodged sometime last night. He has brought his pump with him but does not have the needle apparatus to resume pump function. Needle apparatus is at home.
GENERAL: 78-year-old gentleman appears somewhat older than stated age, awake and alert, easily communicative, somewhat argumentative. Occasional harsh nonproductive cough is noted. Mild resting tachypnea is noted.
EYE: pupils equal and reactive. anicteric
NECK: Supple, nontender, no meningismus, no significant adenopathy. No JVD.
ENT: posterior pharynx is clear, oral mucosa is moist. Mildly boggy turbinates with scant clear rhinorrhea.
CARDIAC: Regular rate and rhythm. no murmur.
LUNGS: Mild resting tachypnea, markedly decreased breath sounds bilaterally with few scattered end expiratory wheezes. Fine rales at bases.
ABDOMEN: Soft, nondistended, without focal tenderness, no r/g, no cvat. normoactive BS.
NEUROLOGICAL: Alert and oriented x3, no focal neuro deficits. Motor strength is 5/5 bilaterally. Gross sensation is intact.
SKIN: Warm and dry, normal color, skin intact. No rash.
MUSCULOSKELETAL: No C/C/E. peripheral pulses are full and equal b/l. No palpable tenderness.
PSYCH: Mildly anxious. Intermittently argumentative.
Concern for exacerbation of COPD, acute CHF, ACS, pneumonia, COVID-19, less likely acute influenza.
Will give DuoNeb nebulizer now. Will check chest x-ray.
Patient is afebrile and no reported fever at home.
Labs thus far reveal mildly elevated white blood cell count of 14.2. Mild anemia. Chemistries are unremarkable save for elevated glucose of 290.
Will check troponin, BNP, COVID and influenza as well as chest x-ray.
Patient's significant other instructed to go home and retrieve insulin pump supplies to resume insulin pump for glucose correction.
01/09/2024 0712 AM
Troponin is elevated at 2.4 consistent with non-STEMI. He continues to deny chest pain.
EKG unchanged from yesterday save for heart rate has trended up mildly.
He continues with mild resting tachypnea with rare brief cough more like attempting to clear his throat.
Chest x-ray concerning for some interstitial edema, concerning for CHF as well as concern for focal infiltrate left lower lobe.
He remains afebrile. COVID and influenza are negative.
Awaiting BNP.
Insulin pump has resumed. CGM shows improvement in blood sugar, trending down from 300 now up to 200.
Due to non-STEMI, acute shortness of breath, concern for CHF as well as potential pneumonia, exacerbation of COPD, patient will require acute hospitalization.
01/09/2024 0731 AM
BNP elevated near 4000. Will give an IV dose of Lasix.
Discharge Plan
Departure
Patient Disposition: Admit
Date of Disposition: 01/09/24
Time of Disposition: 07:15
Admit to: IMU
Admit to doctor: JOSE
Presentation/result/management discussed w/ accepting MD/DO: Hospitalist
Condition: Serious
Covid-19: Negative COVID-19
Discharge Problem:
Acute non-ST elevation myocardial infarction (NSTEMI)
Interventions
Interventions:
*Risk Screen - Suicide Last Done: 01/09/24 03:08
*General Assessment Last Done: 01/09/24 03:08
*Neglect/Abuse Screening Last Done: 01/09/24 03:08
ED- Fall Risk Assessment Last Done: 01/09/24 03:08
*ED COVID-19 Vaccine History Last Done: 01/09/24 03:08
ED- Cardiac Assessment Last Done: 01/09/24 03:12
ED- Pulmonary Assessment Last Done: 01/09/24 03:12
[2024-01-09] MEDS: DUONEB 3 ML INH (05:45)
[2024-01-09 06:46] LABS: COVID-19 Antigen Negative (Negative)
[2024-01-09 07:26] LABS: NT-proBNP 3730 pg/ml
--- NOTE | 2024-01-09 07:28 | HPS.HSE ---
Family Physician
-
Family Physician: Valarie Owusu
Chief Complaint
-
SOB
History of Present Illness
HPI: 78 yo M with PMH COPD, CAD s/p CABG, IDDM, carotid stenosis, PAD s/p Left lower extremity arteriogram/balloon/stent in-stent restenosis, p/w SOB with exertion.
He admits to smoking cigarette and medical marijuana.
He also c/o generalized lethargy and arm weakness. He denies to CP, fever, abd pain etc.
Per ED note, his insulin pumped got clogged so he has not had nightly insulin. Glucose currently 300.
Medical History
Past Medical History
Past Medical History: Reports Other
Additional Past Medical History:
COPD
CAD s/p CABG
IDDM
carotid stenosis
PAD s/p Left lower extremity arteriogram/balloon/stent in-stent restenosis
Past Surgical History: Reports Other
Additional Past Surgical History:
see Above
Social History
Tobacco: Smoker
Drug: Marijuana
Living: Alone
Family History
Family History: Not pertinent
Allergies / Home Medications
Allergies reflects when Allergies were last updated in [facility].
Home Medications with original date entered in [facility]
Allergy/Medication List:
Allergies
Allergy/AdvReac Type Severity Reaction Status Date / Time
No Known Allergies Allergy Verified 01/09/24 03:13
Home Medications
clopidogrel 75 mg tablet 75 mg PO DAILY #90 tabs 10/20/22
atorvastatin 10 mg tablet 10 mg PO DAILY 04/20/23
nitroglycerin 0.4 mg sublingual tablet 0.4 mg sublingual [id number] PRN Chest pain 04/20/23
Medical Marijuana 1 dose PO DAILYPRN PRN neuropathy, anxiety 01/04/24
Patient Own Insulin Pump 0 units SC .VIA PUMP NOVOLOG 01/09/24
aspirin 81 mg tablet,delayed release 81 mg PO DAILY 01/09/24
docusate sodium 100 mg capsule (Colace) 100 mg PO BIDPRN PRN constipation 01/09/24
Review of Systems
-
Respiratory: Reports Trouble Breathing
Cardiac: Denies Chest Pain
Physical Exam
Vital Signs
Vital Signs
Temp Pulse Resp BP Pulse Ox
36.6 C 92 23 119/55 94
01/09/24 03:08 01/09/24 06:01 01/09/24 06:01 01/09/24 06:01 01/09/24 06:01
Physical Exam
General: Well Developed, Well Nourished, No Apparent Distress, Comfortable and Conversant
HEENT: NormoCephalic, Moist mucous membranes and Atraumatic
Respiratory: Clear and Non Labored Respirations; No Accessory Resp Muscle Use
Cardiac: S1/S2 and Regular Rhythm; No Murmur or Rub
GI: Soft, Non Tender, Non Distended and Normal Bowel Sounds; No Organomegaly
Rectal: Deferred by Provider
Musculoskeletal: No Clubbing, No Cyanosis and Edema, Left Lower Extremity (mild)
Skin: No Rash
Neuro: Awake
Psych: Calm and Intact Judgment/Insight
Laboratory Results
-
01/09/24 03:25
01/09/24 03:25
Laboratory Results
Total Bilirubin 0.3 mg/dl (0.2-1.3) 01/09/24 03:25
AST 52 U/L (17-59) 01/09/24 03:25
ALT 25 U/L (0-50) 01/09/24 03:25
Alkaline Phosphatase 86 U/L (38-126) 01/09/24 03:25
Troponin I 2.410 ng/ml H* 01/09/24 05:45
Data Reviewed
-
Diagnostic Radiology: Image Personally Visualized and interpreted and Report Reviewed by me
Lab Data: Labs Reviewed by me
Impression/Plan
-
HPI: 78 yo M with PMH COPD, CAD s/p CABG, IDDM, carotid stenosis, PAD s/p Left lower extremity arteriogram/balloon/stent in-stent restenosis, p/w SOB with exertion.
He admits to smoking cigarette and medical marijuana.
He also c/o generalized lethargy and arm weakness. He denies to CP, fever, abd pain etc.
Per ED note, his insulin pumped got clogged so he has not had nightly insulin. Glucose currently 300.
A/P:
# SOB without hypoxia
COVID/Flu negative
CXR noted borderline prominent pulmonary vascularity, mild acute pulmonary edema versus acute CHF.
check d dimer and consider CT PE if elevated
# Elevated trop, unclear cause
# h/o CAD s/p CABG
Troponin 2.4, continue to trend until peak
EKG NSR, cont to check serial EKG
Check echo
Card CS
# PAD s/p Left lower extremity arteriogram, balloon and stent in-stent restenosis
PT OT eval when able
# COPD
# IDDM
cover with ISS
Card control diet
# h/o carotid stenosis
DVT ppx: Lovenox SQ
FC
[2024-01-09] MEDS: LASIX 40 MG IV (08:12)
--- NOTE | 2024-01-09 08:46 | CON.CAR ---
Addendum entered and electronically signed by Antony Shetty MD 01/09/24 10:09:
78 yo male with PMH of CAD/CABG 2011, PAD, DM, current tobacco. Underwent peripheral stenting to E yesterday. Was discharged home. In evening, felt SOB, which worsened, then presented to ED. There is no chest pain. Exam with RRR, II/
systolic murmur at RUSB, no edema. TnI 2.4. EKG: NSR, lateral TWI (stable from prior). Echo: normal LVEF 60-65%, inferolateral hypokinesis, moderate MR/MS, moderate .
NSTEMI. ASA 324mg, heparin drip. He is already on Plavix for PAD/stenting. 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
Original Note:
Consultation
Consultation Request
Date/Time Consultation Requested: 01/09/2024 07:30
Date/Time Consultation Performed: 01/09/2024 08:10
Requesting Provider: Dr. Garcia
Performing Provider: CINDY Kerr for Dr. Shetty
Reason for Consultation: Abnormal troponin
Medical History
-
Chief Complaint: Shortness of breath
History of Present Illness:
Chapin Carrasco is a 78 year old male (formerly known to Dr. Boudreaux), with coronary artery disease status post CABG (08/2011), type 2 diabetes mellitus, COPD, dyslipidemia, PAD/PVD, and current smoker of both tobacco and marijuana who underwent
left lower extremity arteriogram, balloon and stent in-stent restenosis yesterday, 01/08/[address] Rosales who presented to the emergency department with a chief complaint of shortness of breath. His shortness of breath started last evening at
approximately 8 PM. He had no chest pain. He just felt fatigued and was having trouble breathing. No cough. He tried his inhaler. Initially he believed it helped but then shortly thereafter his breathing got worse. He tried sublingual
nitroglycerin as he felt his arms get heavy. This did not help his shortness of breath nor arm heaviness. He again tried his inhaler and did not have any relief. He then called EMS. EKG showed lateral T wave abnormality. Notable labs include
WBC 14, glucose 290, proBNP 3730, and initial troponin of 2.410.
Past Medical History
Past Medical History: CAD, COPD, Hypercholesterolemia, IDDM and Other (PVD/PAD)
Past Surgical History: Cardiac (CABG 2011)
Social History
Tobacco: Smoker
Alcohol: None
Drug: None
Employment: Retired
Family History
Family History: Reviewed & Not Pertinent
Allergies / Home Medications
Allergy/AdvReac Type Severity Reaction Status Date / Time
No Known Allergies Allergy Verified 01/09/24 03:13
�Medication �Instructions �Recorded �Confirmed �Type
clopidogrel 75 mg tablet 75 mg PO DAILY #90 tabs 10/20/22 01/09/24 Rx
atorvastatin 10 mg tablet 10 mg PO DAILY 04/20/23 01/09/24 History
nitroglycerin 0.4 mg sublingual 0.4 mg sublingual [id number] PRN 04/20/23 01/09/24 History
tablet Chest pain
Medical Marijuana 1 dose PO DAILYPRN PRN neuropathy, 01/04/24 01/09/24 History
anxiety
Patient Own Insulin Pump 0 units SC .VIA PUMP NOVOLOG 01/09/24 01/09/24 History
aspirin 81 mg tablet,delayed 81 mg PO DAILY 01/09/24 01/09/24 History
release
docusate sodium 100 mg capsule 100 mg PO BIDPRN PRN constipation 01/09/24 01/09/24 History
(Colace)
Review of Systems
-
History Source: Patient
All other systems: Negative unless noted
Constitutional: Fatigue
EENT: No Symptoms
Respiratory: Trouble Breathing
Cardiac: No Symptoms
Abdomen/GI: No Symptoms
: No Symptoms
Musculoskeletal: No Symptoms
Skin: No Symptoms
Neurological: No Symptoms
Endocrine: No Symptoms
Hematologic/Lymphatic: No Symptoms
Physical Exam
Vital Signs
Temp Pulse Resp BP Pulse Ox
97.9 F 92 23 119/55 94
01/09/24 03:08 01/09/24 06:01 01/09/24 06:01 01/09/24 06:01 01/09/24 06:01
Lab Results
01/09/24 03:25
01/09/24 03:25
Troponin I 2.410 ng/ml H* 01/09/24 05:45
Ckg-X-Mkqkzhcpilg Pept 3730 pg/ml 01/09/24 05:45
Physical Exam
General: Well Developed, Well Nourished, No Apparent Distress and Comfortable
HEENT: Normocephalic, Anicteric and Moist Mucous Membranes
Respiratory: Clear and Non Labored Respirations
Cardiac: S1/S2 and Regular Rhythm
Breast: Deferred by me
GI: Soft, Non Tender, Non Distended and Normal Bowel Sounds
Rectal: Deferred by Provider
Genito-urinary: No Costovertebral Tender
Musculoskeletal: No Clubbing, No Cyanosis and Edema (Non-pitting LE edema)
Skin: Warm and Dry
Neuro: AO x 3
Hematologic/Lymphatic: No Lymphadenopathy
Psych: Calm
Impression / Plan
-
BACKGROUND: 78M coronary artery disease status post CABG (08/2011), type 2 diabetes mellitus, COPD, dyslipidemia, PAD/PVD, and current smoker of both tobacco and marijuana who underwent left lower extremity arteriogram, balloon and stent in-stent
restenosis yesterday, 01/08/[address] Rosales who presented to the emergency department with a chief complaint of shortness of breath.
Shortness of breath
-Ddx includes: Heart failure, PE, NSTEMI
-Echo pending
NSTEMI
-Shortness of breath without chest pain, he did not have chest pain prior to CABG
-Start heparin gtt
-Troponin 2.410
-Echocardiogram today
CAD status post CABG 2011
-SMITH�LAD, SVG�OM1
-Continue aspirin
Dyslipidemia
-Most recent LDL 75 in the outpatient setting, increase atorvastatin to 20 mg daily
PAD s/p Left lower extremity arteriogram, balloon and stent in-stent restenosis 12/31/[address] Rosales, on DAPT (clopidogrel/ASA)
Type 2 diabetes mellitus, per primary service
Current tobacco use, cessation recommended
Medical marijuana, inhalation
Data Reviewed
-
EKG: Report Reviewed by me
Labs: Labs Reviewed by me
Old Records: Reviewed
[2024-01-09 08:48] LABS: Procalcitonin < 0.05 ng/ml (0.0-0.25)
[2024-01-09 09:51] LABS: Glucose - Point of Care 190 mg/dl (70-99)
[2024-01-09] MEDS: LOW STRENGTH ASPIRIN 324 MG PO (09:57)
[2024-01-09] MEDS: HEPARIN 25000 UNITS/250 ML IV ×2 (10:11→21:05)
[2024-01-09 10:15] LABS: APTT 27.3 Sec (23.4-35.0)
[2024-01-09 10:48] LABS: Hematocrit 34.3 % (39.0-52.0); Hemoglobin 11.9 g/dL (13.0-18.0); Mean Corp Hgb Conc. 34.7 g/dL (33.0-37.0); Mean Corpuscular Hgb 30.6 pg (27.0-31.0); Mean Corpuscular Volume 88.2 fL (80.0-94.0); Mean Platelet Volume 9.7 fL (7.4-10.4); Platelet Count 197 10^3/uL (130-400); Red Blood Cell Count 3.89 10^6/uL (4.70-6.10); Red Cell Dist. Width 13.2 % (11.5-14.5); White Blood Cell Count 15.1 10^3/uL (4.8-10.8)
--- NOTE | 2024-01-09 12:02 | PTCARENOTE ---
Pt received from the ED at 1130. Pt on room air, sat 100%. Denies any chest pain, lightheadedness or dizziness. Pt taken to the mechanical laboratory technician shortly after arriving on the floor.
--- NOTE | 2024-01-09 12:04 | PN.DE.MGMTRT ---
Insulin Management
- -
01/09/2024 Diabetes Management Consult
Patient admitted for SOB, PMH COPD, CAD s/p CABG, carotid stenosis, PAD s/p LLE arteriogram with stent 01/07. Glucose on admission 290. Patient states 'pump was clogged'.
Prior to admission patient using Tandem pump, control IQ, Varisoft infusion set and novolog, with DexCom G6. Current infusion set removed it is kinked. Tissue he has been using is on the left side of his abdomen, discolored, ecchymotic and
swollen, with a questionable fatty area adjacent. He states it si the only place he can see to put the infusion set.
I inserted a new infusion set inserted on R abdomen ~ 4' from DexCom. I did give a .39 correction bolus. Pump settings as follows:
Basal Correction Carb ratio Target
12am .7 47 12 110
3am .6 47 12 110
10am .7 47 12 110
12pm .6 47 12 110
basal 24 hour total 14.9
Patient currently sees Dalton COLBERT with Dr. Cameron for ongoing care.
Will make no change to current pump settings, will follow.
Diabetes History
- -
Type of Diabetes: 2 requiring insulin
Pre-Admission Diabetes Regimen
01/09/24
03:25
Creatinine 1.0
Insulin Pump Settings
IP Diabetes Regimen
01/09/24 01/09/24
03:25 09:50
Glucose 290 H
POC Glucose 190 H
Patient Education
[2024-01-09 12:26] LABS: Glycohemoglobin (HgbA1c) 8.1 % (4.0-5.6)
[2024-01-09] MEDS: PT'S OWN INSULIN PUMP - NovoLOG SC ×2 (14:56→22:23)
[2024-01-09] MEDS: PLAVIX 75 MG PO (15:07)
--- NOTE | 2024-01-09 15:25 | OR.RPT ---
Operative Report
Operative Report
PROCEDURE DATE: 01/08/2024
Preoperative diagnosis: Severe peripheral arterial disease with ischemic rest pain left lower extremity and in-stent restenosis/occlusion.
Postoperative diagnosis: Same
Procedure:
1. Duplex assisted right common femoral artery cannulation.
2. Aortogram and pelvic angiogram.
3. Left lower extremity arteriogram with third order vessel catheterization of left popliteal l artery via right common femoral artery puncture.
4. Balloon angioplasty of occluded left ydunm-nud-dogt popliteal artery including in-stent occlusion. Balloon angioplasty also of in-stent restenosis noted in more proximal left SFA stents.
5. Stent placement in the above the knee popliteal artery extending proximally into pre-existing stents above-knee popliteal/superficial artery with Zilver PTX 6 mm x 140 mm self-expanding drug-eluting stent.
6. Drug-coated balloon angioplasty of behind the knee popliteal artery stenosis with 4 mm x 40 mm Bard Lutonix drug-coated balloon.
7. Right femoral angiogram.
8. Supervision and interpretation.
Surgeon: Bobby
Barrel Bridge Assembler: None
Complications: None
Anesthesia: Local, sedation
Fluoroscopy:
13.8 min
63 mGy
15.76 Gy.cm2
Indications for procedure:
Severe in-stent restenosis noted on duplex imaging along with likely occlusion distal SFA/popliteal artery. Patient with recurrent symptoms of severe claudication and now ischemic rest pain as well. Risk/benefits/alternatives of revascularization
all fully discussed. Patient understood all wished to proceed.
Description of procedure:
Patient was identified, brought to the operating room. Placed on the table in the supine position. After the adequate administration of anesthesia, the patient was prepped and draped in the standard surgical fashion. A standard preoperative
timeout was undertaken and everybody was in agreement with the plan.
The right common femoral artery was accessed with a micropuncture kit under direct duplex ultrasound guidance. A 5 Swazi sheath was then advanced over a 0.035 inch wire, and a martinez's hook catheter was advanced into the abdominal aorta.
Aortogram and pelvic angiogram was obtained. Findings as follows:
Infrarenal aorta: Patent very distal infrarenal aorta with no significant stenosis. The left common and external iliac arteries were visualized in this projection with no significant stenosis as well. Right common iliac artery also patent with no
significant stenosis. Remainder of right iliac system not well-visualized in this obliquity.
Using a floppy angled hydrophilic wire, the left common femoral artery was cannulated and the catheter was advanced. Left lower extremity arteriogram was obtained. Findings as follows:
Common femoral artery: Patent with no significant stenosis.
Profunda femoris artery: Patent with no significant stenosis.
Superficial femoral artery: Patent with stents extending to the origin of the superficial femoral artery. Moderate to severe in-stent restenosis noted at the origin of the superficial femoral artery/edge of stent. Just beyond there there is a
moderate area of stenosis. The next 12 to 14 cm appeared patent. Then again areas of alternating severe stenoses in-stent with areas of warm normal C/patent stents. Then in the above-knee popliteal artery the stent abruptly occluded with
reconstituted flow noted on delayed imaging in the distal above-knee popliteal artery. Runoff appeared to consist of an anterior tibial and posterior tibial artery with a diminutive peroneal artery. Even the patent anterior tibial and posterior
tibial arteries appear to be small and diminutive in were poorly seen to opacify in this imaging.
At this point I selectively cannulated the superficial femoral artery and then exchanged over a Storq wire for an up and over 6 Swazi sheath. The patient was given appropriate dose of heparin. Next, under roadmap assisted guidance I traverse the
area of occlusion of the above-knee popliteal artery with a flopping of hydrophilic wire. When I crossed the occlusion and passed the wire into one of the tibial vessels, I could not advance a CXI catheter. I exchanged for a quick cross catheter.
I had to gain further wire purchase in the tibial and then finally was able to push through with the catheter. I now exchanged for a Storq wire again. I then performed balloon angioplasty of the occluded segment as well as some of the more
immediately more proximal stenoses in the distal stents. This was done with a 4 mm angioplasty balloon. I also angioplastied the more proximal in-stent restenosis with 4 mm angioplasty balloon. I then primarily stented the occlusion area along
with extending the stents back into the existing stents with severe in-stent restenosis using a 6 mm x 140 mm Cook Zilver PTX drug-eluting stent. I then post angioplastied these with a 5 mm balloon and then carried that [address]
back to the origin of the superficial femoral artery to angioplasty out all the areas of stenoses. Completion angiogram now demonstrated excellent result with no real residual significant stenosis throughout the stented SFA and above-knee popliteal
artery. The behind the knee popliteal artery had an area of luminal irregularity and likely high-grade stenosis. I therefore then used a 4 mm x 40 mm USIS HOLDINGStronic Lutonix drug-coated balloon with prolonged inflation. Completion angiogram now
demonstrated an excellent result at that location with stable flow into the runoff. At this point I was very satisfied. I withdrew my sheath to the right external iliac artery. Angiogram demonstrated good puncture in the right common femoral
artery. Right femoral angiography demonstrated significant in-stent restenosis in the right superficial femoral artery as well. Therefore the wires and catheters were withdrawn. The patient was given some protamine reverse the heparin and manual
pressure was applied to the puncture site. Hemostasis was fully achieved. The patient tolerated procedure well with an excellent dopplerable signal and a weak pulsation in the left foot.
[2024-01-09 17:43] LABS: Glucose - Point of Care 103 mg/dl (70-99)
[2024-01-09] MEDS: PT'S OWN INSULIN PUMP - NovoLOG 3.91 UNIT SC (17:54)
--- NOTE | 2024-01-09 18:26 | PTCARENOTE ---
Pt received post cath at 1400. Pt restless and agitated, trying to sit up, pull off O2 and put legs oob. Pt shouting that he didn't want nursing staff to touch him, wanting to stand to urinate. Pt leaning on left rad cath site as he was trying to
get up. Left hand IV site started bleeding and eventually fell out. # 2o restarted in right AC. Pt eventually calmed down and fell asleep. Sinus Tach, heart rate in the 120's during agitated state. Pt remains calm and is sitting on the side of the
bed to eat dinner. Left radial cath site WNL.
--- NOTE | 2024-01-09 19:52 | ITS.CL.PN ---
Client Service Associate - Procedure Note
Procedure
Procedure Note:
CARDIAC CATHETERIZATION REPORT
Date of Procedure: 01/09/2024
Referring: Dr. Antony Shetty MD
Indication: NSTEMI
PROCEDURES:
1. Coronary angiography
2. Bypass graft angiography
3. Left heart catheterization
ACCESS:
6 Australian distal left radial artery
CATHETERS:
1. 6 Australian CLAUDIA
2. 6 Australian JR4 (also used to engaged SVG-OM1)
3. 6 Australian JL4
HEMODYNAMIC DATA:
LV 140/20 (EDP 43)
AO 128/65 (mean 92)
CORONARY ANGIOGRAPHY
Dominance: right
LM: eccentric 70-80% long stenosis
LAD: moderate caliber vessel with severe ostial stenosis and and total occlusion in the mid-vessel. There are several small diagonal branches that takeoff prior to the total occlusion. There is diffuse moderate disease in the proximal LAD and branch
vessels. The mid-distal LAD is supplied by the SMITH.
LCx: large vessel that gives rise to a large branching OM1, small OM2, and several LPL branches. There is a 60% stenosis in the proximal LCx. The OM1 is atretic and diffusely diseased with a 100% occlusion in the mid-portion of it's upper branch.
There is mild-moderate diffuse disease in the mid-distal LCx and LPL branches.
RCA: small and non-dominant with 60% mid-vessel stenosis.
BYPASS GRAFT ANGIOGRAPHY
SMITH-LAD: taken as a pedicle and forms a patent anastomosis with the mid-LAD.
SVG-OM1: occluded at it's origin
Radiation dose (mGy): 445
DAP (cm2.Gy): 30.45
Fluoroscopy time (minutes): 13.4
CONCLUSIONS:
1. Coronary artery disease status post-CABG with occluded SVG-OM1, patent SMITH-LAD, non-dominant RCA.
2. Severely elevated LV filling pressure and no significant gradient across the aortic valve.
RECOMMENDATIONS:
1. Expectant management after left distal radial catheterization.
2. Aggressive secondary prevention of coronary artery disease.
3. Culprit for NSTEMI potentially the occluded SVG-OM1, though the angiographic appearance of the occlusion is more chronic, without visible thrombus and with severe negative remodeling in the OM1 itself.
4. Recommend medical management of NSTEMI with 48 hours heparin drip, beta janet.
5. Cont. DAPT with ASA/Plavix as per vascular.
Copy to: Dr. Antony Shetty MD, PhD
Signed: Sukumar Abarca MD, PhD
[2024-01-09 21:34] LABS: Glucose - Point of Care 69 mg/dl (70-99)
[2024-01-09 21:55] LABS: Glucose - Point of Care 77 mg/dl (70-99)
--- NOTE | 2024-01-09 23:27 | PTCARENOTE ---
Received start of shift, HR SR/ST. Pt slightly agitated. Pt AAOx3, slight garbled speech. Tachypnea noted: RR 22-36. SPO2 97% and up. Pt states he usually gets tachypneic on waking up and this has been going on for 'a long time'. Doppler dorsalis
pedis pulses. Heparin resumed at 2100 at 900u/hr. Reinforced CAD education w/ pt. Blood glucose on evening check 69. Asymptomatic. Hypogylcemic protocol followed - see worklist.
[2024-01-09 23:56] LABS: Glucose - Point of Care 93 mg/dl (70-99)
[2024-01-10] VITALS (14 sets, daily range): BP systolic 94–148; BP diastolic 36–95; PULSE 81–97; O2SAT 98; BMI 22.9
[2024-01-10 02:08] LABS: Glucose - Point of Care 90 mg/dl (70-99)
[2024-01-10 03:40] LABS: Glucose - Point of Care 85 mg/dl (70-99)
--- NOTE | 2024-01-10 03:44 | W.PN.UPDATE ---
Update Note
Progress Note Update
Reported by the nursing staff that the patient has difficult breathing, vomited x1. BP 119/56, kv208h, SPO2 97%, temp 99.9.
On exam, patient complaining of difficult breathing and sputum that he not able to bring up, denied chest pain. Diminished lung sound on exam and no wheezing or crackle noted during the exam.
Covid and influenza are neg on admission.
-Xopenex nebs PRN and cough meds ordered and will repeat chest x-ray.
[2024-01-10] MEDS: ROBITUSSIN DM 5 ML PO (03:59)
[2024-01-10] MEDS: COMPAZINE 5 MG IV (03:59)
[2024-01-10 04:11] LABS: Hematocrit 32.9 % (39.0-52.0); Hemoglobin 11.5 g/dL (13.0-18.0); Mean Corpuscular Hgb 30.6 pg (27.0-31.0); Mean Corpuscular Volume 87.5 fL (80.0-94.0); Mean Platelet Volume 9.8 fL (7.4-10.4); Platelet Count 190 10^3/uL (130-400); Red Blood Cell Count 3.76 10^6/uL (4.70-6.10); Red Cell Dist. Width 13.1 % (11.5-14.5); White Blood Cell Count 13.4 10^3/uL (4.8-10.8)
--- NOTE | 2024-01-10 04:20 | PTCARENOTE ---
On waking pt for VS check, RR 36-40. Pt states 'I cannot breathe' and there is a 'frog in my throat'. Temperature 99.9. BP 119/56. DIGITAL ASSET COORDINATOR Marshall notified via TT. Pt then vomited x2. Vomit mostly clear liquid. ALAINA Olivares at bedside. Pt requesting Mucinex.
Robitussin and compazine ordered and administered- see MAY. EKG completed. PRN xopenex added.
[2024-01-10 04:21] LABS: APTT 55.5 Sec (23.4-35.0)
[2024-01-10 04:33] LABS: Blood Urea Nitrogen 27 mg/dl (9-20); Calcium 8.9 mg/dl (8.4-10.2); Carbon Dioxide 24 mmol/L (22-30); Chloride 103 mmol/L (98-107); Estimated Creatinine Clearance 66 ml/min; Glucose 80 mg/dl (70-99); Sodium 138 mmol/L (135-145); eGFR > 60.00
--- NOTE | 2024-01-10 07:55 | PN.DE.MGMTRT ---
Insulin Management
- -
01/10/2024 Diabetes Management Consult Follow up
Patient admitted for SOB, PMH COPD, CAD s/p CABG, carotid stenosis, PAD s/p LLE arteriogram with stent 01/07. Glucose on admission 290. Patient states 'pump was clogged'.
Prior to admission patient using Tandem pump, control IQ, Varisoft infusion set and novolog, with DexCom G6. Current infusion set removed from L abdomen, it is kinked. Tissue he has been using is on the left side of his abdomen, discolored,
ecchymotic and swollen, with a questionable fatty area adjacent. He states it is the only place he can see to put the infusion set. Reviewed appropriate alternate infusion site he should be able to see. He is reluctant to change.
01/08 I inserted a new infusion set inserted on R abdomen ~ 4' from DexCom. I did give a .39 correction bolus. Pump settings as follows:
Basal Correction Carb ratio Target
12am .7 47 12 110
3am .6 47 12 110
10am .7 47 12 110
12pm .6 47 12 110
basal 24 hour total 14.9
01/09 Patient glucose down to 69 @ 9:23 pm last evening, treated then up to 77. Overnight glucose 90 and 85. Discussed with patient that with new infusion site insulin is absorbing better will need to reduce basal rates. Updated reduced basal
rates:
12AM .65
3AM .55
10AM .6
12pm .5
24 hour basal total 13 units.
Patient agreeable to start Farxiga. Dr. Shetty, cardiology, has ordered. Will follow glucose for possible further needed reduction to basal rates.
Patient currently sees Dalton COLBERT with Dr. Cameron for ongoing diabetes care.
Will follow.
Diabetes History
- -
Type of Diabetes: 2 requiring insulin
Pre-Admission Diabetes Regimen
01/10/24
03:50
Creatinine 0.9
Lab Results
Hemoglobin A1c 8.1 % (4.0-5.6) H 01/09/24 10:07
Insulin Pump Settings
IP Diabetes Regimen
01/09/24 01/09/24 01/09/24
09:50 17:41 21:33
Glucose
POC Glucose 190 H 103 H 69 L
01/09/24 01/09/24 01/10/24
21:53 23:54 02:06
Glucose
POC Glucose 77 93 90
01/10/24 01/10/24
03:39 03:50
Glucose 80
POC Glucose 85
Meal type: Dinner
Amount consumed: 100%
Patient Education
--- NOTE | 2024-01-10 08:07 | W.PN.HOSP.TC ---
Today's Communication/Plan
-
see A/P
Assessment / Plan
Assessment / Plan
HPI: 78 yo M with PMH COPD, CAD s/p CABG, IDDM, carotid stenosis, PAD s/p Left lower extremity arteriogram/balloon/stent in-stent restenosis, p/w SOB with exertion.
He admits to smoking cigarette and medical marijuana.
He also c/o generalized lethargy and arm weakness. He denies to CP, fever, abd pain etc.
Per ED note, his insulin pumped got clogged so he has not had nightly insulin. Glucose currently 300.
A/P:
# SOB without hypoxia
COVID/Flu negative
Procal negative
CXR noted borderline prominent pulmonary vascularity, mild acute pulmonary edema versus acute CHF.
d dimer elevated, could check BL LE US first
# Elevated trop, due to ACS/NSTEMI
# h/o CAD s/p CABG
Troponin 2.4, peaked at 23
Echo: EF 60-65%. Mid to distal inferolateral and apical lateral akinesis/hypokinesis. Stage II diastolic dysfunction. Moderate mitral stenosis. Moderate mitral regurgitation.
s/p cath 01/09: noted Coronary artery disease status post-CABG with occluded SVG-OM1, patent SMITH-LAD, non-dominant RCA.
recc medical management of NSTEMI with 48 hours heparin drip, beta janet Toprol 12.5 mg BID added
Cont DAPT with ASA/Plavix as per vascular.
Cardiology on board
# PAD s/p Left lower extremity arteriogram, balloon and stent in-stent restenosis
PT OT
# COPD
# IDDM with home use insulin pump
cover with ISS
Card control diet
DM CLIENT TECHNICAL SUPPORT ASSOCIATE on board
# h/o carotid stenosis
# cigarette smoking
counselled on cessation
DVT ppx: hep drip
FC
Dispo: PT OT eval
DW SO at bedside
Anticipated Discharge: 24 - 48 hours
Subjective/Interval History
-
Date of Service: January 10, 2024
Objective Data
-
Labs:
Laboratory Results
01/09/24 01/10/24 01/10/24
20:48 03:50 10:35
WBC 13.4 H
Hgb 11.5 L
Hct 32.9 L
Plt Count 190
APTT Cancelled 55.5 H Pending
Sodium 138
Potassium 4.0
Chloride 103
Carbon Dioxide 24
BUN 27 H
Creatinine 0.9
Glucose 80
Calcium 8.9
Vital Signs:
Vital Signs
Temp Pulse Resp BP Pulse Ox
36.9 C 106 16 124/54 96
01/10/24 07:44 01/10/24 07:46 01/10/24 07:44 01/10/24 07:46 01/10/24 07:44
I&O
01/09/24 01/10/24 01/11/24
06:59 06:59 06:59
Intake Total 240 / 240
Output Total 700 / 700
Balance -460 / -460
Review of Systems
-
All other systems: Reviewed and negative
Physical Exam
-
General: Well Developed, Well Nourished, No Apparent Distress and Comfortable; Negative Respiratory Distress
HEENT: Normocephalic, Atraumatic, Nose Appears Normal and Ears Appear Normal; Negative Oxygen
Respiratory: Clear to Auscultation and Non Labored Respirations; Negative Accessory Resp Muscle Use
Cardiac: Regular Rhythm and S1/S2
GI: Soft, Nontender, Nondistended and Normal Bowel Sounds
Musculoskeletal: Edema, Left Lower Extrem (mild)
Skin: Warm and Dry
Neuro: Awake
Psych: Calm
Data Reviewed
-
Medical Tests (Nuc Med, Echo etc): Report Reviewed by me (echo, cath)
Labs: Labs Reviewed by me
[2024-01-10 09:05] LABS: Glucose - Point of Care 95 mg/dl (70-99)
[2024-01-10] MEDS: PLAVIX 75 MG PO (09:11)
[2024-01-10] MEDS: LIPITOR 20 MG PO (09:11)
[2024-01-10] MEDS: ASPIR LOW (ENTERIC COATED) 81 MG PO (09:11)
[2024-01-10] MEDS: LOPRESSOR 12.5 MG PO ×2 (09:11→10:34)
--- NOTE | 2024-01-10 09:32 | CM ---
Priced Jardiance + Farxiga thru patient's RX plan, .
Estimated cost of 30 d supply of Jardiance is $120.34
Estimated cost of 30 d supply of Farxiga is $114.66
Can provide a free 30 d coupon for either medication.
TT to attg. [email or web address] to notify of pricing.
--- NOTE | 2024-01-10 09:49 | WOUNDNOTE ---
L DORSAL 2ND TOE
--- NOTE | 2024-01-10 09:55 | WOUNDNOTE ---
MICHAEL RN NOTE: Patient admitted with non-STEMI, history of NIDDM, CAD,COPD, smoker. Patient has very small dry intact scabs on L lateral foot and L dorsal 2nd toe. They are not draining and do not look infected. Skin on legs very dry, + pedal pulse.
Sacrum and heels are intact. Will order mineral oil for legs and feet daily. Recommend wearing slipper socks while in rm. Will sign off.
--- NOTE | 2024-01-10 10:06 | W.PN.CD ---
Today's Communication / Plan
-
IV lasix
heparin drip until tomorrow
add farxiga
Impression / Plan
-
BACKGROUND: 78M coronary artery disease status post CABG (08/2011), type 2 diabetes mellitus, COPD, dyslipidemia, PAD/PVD, and current smoker of both tobacco and marijuana who underwent left lower extremity arteriogram, balloon and stent in-stent
restenosis yesterday, 01/08/[address] Rosales who presented to the emergency department with a chief complaint of shortness of breath.
NSTEMI
-Cath 01/08
-Culprit for NSTEMI potentially the occluded SVG-OM1, though the angiographic appearance of the occlusion is more chronic, without visible thrombus and with severe negative remodeling in the OM1 itself. Recommend medical management of
NSTEMI with 48 hours heparin drip (to stop 01/10 AM).
-cont ASA, Plavix
-increase metoprolol to 25mg bid
Acute HFPEF
-echo EF 60-65%, Stage II DD, moderate MR/MS, moderate , nl RV, mild TR, PASP 45-50
-lasix 40mg IV bid with close monitoring of labs/tele
-add Farxiga (patient OK with cost)
CAD status post CABG 2011
-SMITH�LAD; SVG�OM1 now occluded
-plan as above
Dyslipidemia
-f/u lipids, to advise on statin dose; goal LDL under 55
PAD s/p Left lower extremity arteriogram, balloon and stent in-stent restenosis 12/31/[address] Rosales, on DAPT (clopidogrel/ASA)
Type 2 diabetes mellitus, per primary service
Current tobacco use, cessation recommended
Medical marijuana, inhalation
Physical Exam
Vital Signs/Labs
Vital Signs
Temp Pulse Resp BP Pulse Ox
98.4 F 104 16 124/54 96
01/10/24 07:44 01/10/24 08:09 01/10/24 08:09 01/10/24 07:46 01/10/24 09:16
01/09/24 01/10/24 01/11/24
06:59 06:59 06:59
Actual Weight 74 kg 70.3 kg
01/10/24 03:50
01/10/24 03:50
APTT 55.5 Sec (23.4-35.0) H 01/10/24 03:50
01/09/24
05:45
Fpr-M-Wmtexdrklfb Pept 3730
LAB Results
01/09/24 01/09/24 01/09/24
05:45 14:40 15:00
Troponin I 2.410 H* 20.600 H* Cancelled
01/09/24 01/09/24 01/10/24
18:00 21:14 03:50
Troponin I Cancelled 23.200 H* 22.300 H*
Physical Exam
Constitutional: No acute distress
EENT: Moist mucous membranes
Cardiovascular: Rhythm & rate is regular, Pedal edema is absent, JVD present and Systolic murmur present
Respiratory: Respiratory effort normal and Wheeze Present
Neuro/Psych: AO x 3
Data Reviewed
-
Date of Service: January 10, 2024
EKG: Other (Tele: SR/ST 90s-100s)
Echo: Report Reviewed by me
Medical Tests (PFT, Pathology etc): Report Reviewed by me (cath)
Labs: Labs Reviewed by me
[2024-01-10] MEDS: PT'S OWN INSULIN PUMP - NovoLOG SC ×3 (10:33→21:17)
[2024-01-10] MEDS: LASIX 40 MG IV ×2 (10:34→16:43)
[2024-01-10] MEDS: FARXIGA 10 MG PO (10:34)
--- NOTE | 2024-01-10 11:07 | CM ---
CM following for DC planning needs.
Met w/ patient at bedside, sig. other also present at bedside.
Pt. reluctant to speak to me, stated that he wishes to be uninterrupted at this time.
Sig. other confirms that patient is indep. at baseline w/ ADLS, mobility and uses a walking stick in the community.
Pt. is aware of pricing for meds and is agreeable. Will place free 30 d coupon in chart.
Antic. DC plan is for home, no needs.
CM to follow.
[2024-01-10 12:00] LABS: Glucose - Point of Care 82 mg/dl (70-99)
[2024-01-10] MEDS: PT'S OWN INSULIN PUMP - NovoLOG 1.24 UNIT SC (13:38)
[2024-01-10 17:14] LABS: Glucose - Point of Care 102 mg/dl (70-99)
[2024-01-10 17:33] LABS: APTT 102.2 Sec (23.4-35.0)
--- NOTE | 2024-01-10 19:40 | PTCARENOTE ---
Pt somewhat tetchy about allowing any care, he eventually agreed . Pt seen by . Pt diuresed well after lasix and stated his breathing had improved. Pt up independently in room. Pt completely averse to eating any hospital food at all, he ate a
salad brought in by his girlfriend. Heparin infusion continues. Telemetry shows sinus rhythm , sinus tach.
[2024-01-10] MEDS: HEPARIN 25000 UNITS/250 ML IV (20:03)
[2024-01-10] MEDS: TOPROL XL 25 MG PO (20:07)
[2024-01-10 20:56] LABS: Glucose - Point of Care 92 mg/dl (70-99)
[2024-01-11] VITALS (7 sets, daily range): BP systolic 106–141; BP diastolic 46–60; BMI 22.3
--- NOTE | 2024-01-11 01:18 | PTCARENOTE ---
Pt received start of shift, HR SR/ST. Heparin infusing at 1100u/hr per protocol. Reinforced education on toprol with pt, pt states understanding. L radial cath site soft, no hematoma. Pt no longer tachypneic. Pt refusing hospital provided dinner. Pt
denying any CP or SOB. Informed to notify RN if any changes, call lovett within reach.
[2024-01-11 05:22] LABS: Hematocrit 32.2 % (39.0-52.0); Hemoglobin 11.3 g/dL (13.0-18.0); Mean Corp Hgb Conc. 35.1 g/dL (33.0-37.0); Mean Corpuscular Hgb 30.7 pg (27.0-31.0); Mean Corpuscular Volume 87.5 fL (80.0-94.0); Mean Platelet Volume 9.7 fL (7.4-10.4); Platelet Count 176 10^3/uL (130-400); Red Blood Cell Count 3.68 10^6/uL (4.70-6.10); White Blood Cell Count 9.8 10^3/uL (4.8-10.8)
[2024-01-11 06:25] LABS: Blood Urea Nitrogen 27 mg/dl (9-20); Calcium 8.4 mg/dl (8.4-10.2); Carbon Dioxide 26 mmol/L (22-30); Chloride 100 mmol/L (98-107); Estimated Creatinine Clearance 65 ml/min; Glucose 55 mg/dl (70-99); HDL Cholesterol 64 mg/dl; LDL Cholesterol, Calculated 68 mg/dl; Magnesium 2.3 mg/dl (1.6-2.3); Potassium 3.5 mmol/L (3.5-5.1); Sodium 137 mmol/L (135-145); Total Cholesterol 146 mg/dl (50-199); Triglyceride 70 mg/dl (10-149); Very Low Density Lipoprotein 14 mg/dl (0-30); eGFR > 60.00
[2024-01-11 06:29] LABS: APTT 170.3 Sec (23.4-35.0)
[2024-01-11 06:30] LABS: Glucose - Point of Care 58 mg/dl (70-99)
[2024-01-11 06:48] LABS: Glucose - Point of Care 75 mg/dl (70-99)
--- NOTE | 2024-01-11 08:05 | PN.DE.MGMTRT ---
Insulin Management
- -
01/11/2024 Diabetes Management Consult Follow up
Patient admitted for SOB, PMH COPD, CAD s/p CABG, carotid stenosis, PAD s/p LLE arteriogram with stent 01/07. Glucose on admission 290. Patient states 'pump was clogged'.
Prior to admission patient using Tandem pump, control IQ, Varisoft infusion set and novolog, with DexCom G6. Current infusion set removed from L abdomen, it is kinked. Tissue he has been using is on the left side of his abdomen, discolored,
ecchymotic and swollen, with a questionable fatty area adjacent. He states it is the only place he can see to put the infusion set. Reviewed appropriate alternate infusion site he should be able to see. He is reluctant to change.
01/08 I inserted a new infusion set inserted on R abdomen ~ 4' from DexCom. I did give a .39 correction bolus. Pump settings as follows:
Basal Correction Carb ratio Target
12am .7 47 12 110
3am .6 47 12 110
10am .7 47 12 110
12pm .6 47 12 110
basal 24 hour total 14.9
01/09 Patient glucose down to 69 @ 9:23 pm last evening, treated then up to 77. Overnight glucose 90 and 85. Discussed with patient that with new infusion site insulin is absorbing better will need to reduce basal rates. Updated reduced basal
rates:
12AM .65
3AM .55
10AM .6
12pm .5
24 hour basal total 13 units.
Patient agreeable to start Farxiga. Dr. Shetty, cardiology, has ordered. Will follow glucose for possible further needed reduction to basal rates.
01/10 Glucose fasting 55 venous, pre meal yesterday 82 to 102. Discussed with patient and friend that Farxiga does reduce the amount of insulin required. He is agreeable to further reduction of pump settings.
Reduce pump settings as follows:
Basal Correction Carb ratio Target
12am .45 50 15 110
3am .4 50 15 110
10am .5 50 15 110
12pm .4 50 15 110
Patient currently sees Dalton COLBERT with Dr. Cameron for ongoing diabetes care.
Will follow.
Diabetes History
- -
Type of Diabetes: 2 requiring insulin
Pre-Admission Diabetes Regimen
01/11/24
05:09
Creatinine 0.9
Lab Results
Hemoglobin A1c 8.1 % (4.0-5.6) H 01/09/24 10:07
Insulin Pump Settings
IP Diabetes Regimen
01/10/24 01/10/24 01/10/24
09:04 11:59 17:13
Glucose
POC Glucose 95 82 102 H
01/10/24 01/11/24 01/11/24
20:55 05:09 06:29
Glucose 55 L*
POC Glucose 92 58 L
01/11/24
06:46
Glucose
POC Glucose 75
Meal type: Dinner
Meal type: Lunch
Meal type: Breakfast
Amount consumed: Patient refused
Amount consumed: 90%
Amount consumed: 100%
Patient Education
--- NOTE | 2024-01-11 08:14 | W.PN.HOSP.TC ---
Today's Communication/Plan
-
see A/P
Assessment / Plan
Assessment / Plan
HPI: 78 yo M with PMH COPD, CAD s/p CABG, IDDM, carotid stenosis, PAD s/p Left lower extremity arteriogram/balloon/stent in-stent restenosis, p/w SOB with exertion.
He admits to smoking cigarette and medical marijuana.
He also c/o generalized lethargy and arm weakness. He denies to CP, fever, abd pain etc.
Per ED note, his insulin pumped got clogged so he has not had nightly insulin. Glucose currently 300.
A/P:
# SOB without hypoxia
COVID/Flu negative
Procal negative
CXR noted borderline prominent pulmonary vascularity, mild acute pulmonary edema versus acute CHF.
d dimer elevated, BL LE US neg for DVT, doubt PE with improvement of resp symptoms
# Elevated trop, due to ACS/NSTEMI
# h/o CAD s/p CABG
Troponin 2.4, peaked at 23
Echo: EF 60-65%. Mid to distal inferolateral and apical lateral akinesis/hypokinesis. Stage II diastolic dysfunction. Moderate mitral stenosis. Moderate mitral regurgitation.
s/p cath 01/09: noted Coronary artery disease status post-CABG with occluded SVG-OM1, patent SMITH-LAD, non-dominant RCA.
[facility] medical management of NSTEMI with 48 hours heparin drip, beta janet Toprol 25 mg BID added
Cont DAPT with ASA/Plavix as per vascular.
Cardiology on board
# Acute HFPEF
echo EF 60-65%, Stage II DD, moderate MR/MS, moderate , nl RV, mild TR, PASP 45-50
lasix 40mg IV bid added, daily weight
added Farxiga (patient OK with cost)
# PAD s/p Left lower extremity arteriogram, balloon and stent in-stent restenosis
PT OT outpt therapy
# COPD
# IDDM with home use insulin pump
cover with ISS
Card control diet
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
# h/o carotid stenosis
# cigarette smoking
counselled on cessation
DVT ppx: hep drip
FC
Dispo: PT OT outpt therapy
DW SO at bedside
Anticipated Discharge: 24 - 48 hours
Subjective/Interval History
-
Date of Service: January 11, 2024
Objective Data
-
Labs:
Laboratory Results
01/11/24 01/11/24
05:09 13:30
WBC 9.8
Hgb 11.3 L
Hct 32.2 L
Plt Count 176
APTT 170.3 H* Pending
Sodium 137
Potassium 3.5
Chloride 100
Carbon Dioxide 26
BUN 27 H
Creatinine 0.9
Glucose 55 L*
Calcium 8.4
Vital Signs:
Vital Signs
Temp Pulse Resp BP Pulse Ox
36.8 C 73 18 117/60 97
01/11/24 05:17 01/11/24 06:00 01/11/24 05:17 01/11/24 04:59 01/11/24 05:17
I&O
01/10/24 01/11/24 01/12/24
06:59 06:59 06:59
Intake Total 240 / 240 240 / 240
Output Total 700 / 700 400 / 400
Balance -460 / -460 -160 / -160
Review of Systems
-
All other systems: Reviewed and negative
Physical Exam
-
General: Well Developed, Well Nourished, No Apparent Distress and Comfortable; Negative Respiratory Distress
HEENT: Normocephalic, Atraumatic, Nose Appears Normal and Ears Appear Normal; Negative Oxygen
Respiratory: Clear to Auscultation and Non Labored Respirations; Negative Accessory Resp Muscle Use
Cardiac: Regular Rhythm and S1/S2
GI: Soft, Nontender, Nondistended and Normal Bowel Sounds
Musculoskeletal: Edema, Left Lower Extrem (mild)
Skin: Warm and Dry
Neuro: Awake
Psych: Calm
Data Reviewed
-
Medical Tests (Nuc Med, Echo etc): Report Reviewed by me (echo, cath)
Labs: Labs Reviewed by me
--- NOTE | 2024-01-11 08:25 | W.PN.CD ---
Today's Communication / Plan
-
IV diuresis today, PO tomorrow (start with PO 40 qAM) and monitor I/Os
Impression / Plan
-
BACKGROUND: 78M coronary artery disease status post CABG (08/2011), type 2 diabetes mellitus, COPD, dyslipidemia, PAD/PVD, and current smoker of both tobacco and marijuana who underwent left lower extremity arteriogram, balloon and stent in-stent
restenosis yesterday, 01/08/[address] Rosales who presented to the emergency department with a chief complaint of shortness of breath, found to have NSTEMI with occluded SVG-OM on [facility] 01/08 with severely elevated LV filling pressures.
Subjective: breathing improved today; no events on tele; Cr stable
NSTEMI
-Cath 01/08
-Culprit for NSTEMI potentially the occluded SVG-OM1, though the angiographic appearance of the occlusion is more chronic, without visible thrombus and with severe negative remodeling in the OM1 itself. Recommend medical management of
NSTEMI with 48 hours heparin drip (to stop 01/10 AM).
-cont ASA, Plavix
-increased metoprolol to 25mg bid
Acute HFPEF
-echo EF 60-65%, Stage II DD, moderate MR/MS, moderate , nl RV, mild TR, PASP 45-50
-lasix 40mg IV bid with close monitoring of labs/tele; can transition to PO lasix 40 for goal euvolmia tomorrow (01/11)
-added Farxiga (patient OK with cost)
CAD status post CABG 2011
-SMITH�LAD; SVG�OM1 now occluded
-plan as above
Moderate /MS
-needs close cardiology follow up with TTE q6-12 mo
Dyslipidemia
-f/u lipids, to advise on statin dose (was on 10 at home, now 20; should be high intensity in long-term but concerned about tolerance); goal LDL under 55
PAD s/p Left lower extremity arteriogram, balloon and stent in-stent restenosis 12/31/[address] Rosales, on DAPT (clopidogrel/ASA)
Type 2 diabetes mellitus, per primary service
Current tobacco use, cessation recommended
Medical marijuana, inhalation
Physical Exam
Vital Signs/Labs
Vital Signs
Temp Pulse Resp BP Pulse Ox
36.8 C 73 18 117/60 97
01/11/24 05:17 01/11/24 06:00 01/11/24 05:17 01/11/24 04:59 01/11/24 05:17
01/10/24 01/11/24 01/12/24
06:59 06:59 06:59
Actual Weight 70.3 kg 68.6 kg
01/11/24 05:09
01/11/24 05:09
APTT 170.3 Sec (23.4-35.0) H* 01/11/24 05:09
Magnesium 2.3 mg/dl (1.6-2.3) 01/11/24 05:09
Triglycerides 70 mg/dl (10-149) 01/11/24 05:09
LDL Cholesterol, Calc 68 mg/dl 01/11/24 05:09
VLDL Cholesterol, Calc 14 mg/dl (0-30) 01/11/24 05:09
HDL Cholesterol 64 mg/dl 01/11/24 05:09
01/09/24
05:45
Wla-R-Mwxdwfbkvdq Pept 3730
LAB Results
01/09/24 01/09/24 01/09/24
05:45 14:40 15:00
Troponin I 2.410 H* 20.600 H* Cancelled
01/09/24 01/09/24 01/10/24
18:00 21:14 03:50
Troponin I Cancelled 23.200 H* 22.300 H*
01/10/24
06:00
Troponin I Cancelled
Physical Exam
Constitutional: No acute distress
Cardiovascular: Rhythm & rate is regular, Pedal edema is absent, JVD pressure is normal, Systolic murmur absent and Diastolic murmur absent
Respiratory: Respiratory effort normal and Crackles Absent (very mild bibasilar)
Neuro/Psych: AO x 3
Data Reviewed
-
Date of Service: January 11, 2024
Medical Decision Making: Reviewed Test Results
EKG: Tracing Personally Visualized and interpreted
X-Ray/CT/US/MRI/NUC/PET: Image Personally Visualized and interpreted
Labs: Labs Reviewed by me
[2024-01-11 08:51] LABS: Glucose - Point of Care 126 mg/dl (70-99)
[2024-01-11] MEDS: TOPROL XL 25 MG PO ×2 (09:04→21:17)
[2024-01-11] MEDS: PLAVIX 75 MG PO (09:04)
[2024-01-11] MEDS: ASPIR LOW (ENTERIC COATED) 81 MG PO (09:04)
[2024-01-11] MEDS: FARXIGA 10 MG PO (09:04)
[2024-01-11] MEDS: LIPITOR 20 MG PO (09:05)
[2024-01-11] MEDS: LASIX 40 MG IV ×2 (09:08→15:10)
[2024-01-11 11:29] LABS: Glucose - Point of Care 138 mg/dl (70-99)
[2024-01-11] MEDS: PT'S OWN INSULIN PUMP - NovoLOG 2.4 UNIT SC (11:38)
[2024-01-11] MEDS: PT'S OWN INSULIN PUMP - NovoLOG SC ×2 (11:38→23:37)
[2024-01-11 17:07] LABS: Glucose - Point of Care 124 mg/dl (70-99)
[2024-01-11] MEDS: PT'S OWN INSULIN PUMP - NovoLOG 1 UNIT SC (18:13)
--- NOTE | 2024-01-11 18:39 | PTCARENOTE ---
Pt much more active today, up in room , eating breakfast and dinner. Accuchecks 120-130 today, insulin pump settings reprogrammed by Mary Sterling NP. Telemetry shows sinus rhythm . Plan to discontinue IV heparin tonight.
[2024-01-11 21:17] LABS: Glucose - Point of Care 206 mg/dl (70-99)
--- NOTE | 2024-01-11 23:00 | PTCARENOTE ---
Pt received at change of shift. VSS. NSR on tele with HR 70s-80s. Heparin discontinued per order. Ambulating independently without difficulty. Can make needs known. Call lovett within reach.
[2024-01-12 03:05] VITALS: BP 132/68
[2024-01-12 06:00] VITALS: BMI 22.2
[2024-01-12 06:44] LABS: Hematocrit 30.8 % (39.0-52.0); Hemoglobin 10.9 g/dL (13.0-18.0); Mean Corp Hgb Conc. 35.4 g/dL (33.0-37.0); Mean Corpuscular Hgb 29.7 pg (27.0-31.0); Mean Corpuscular Volume 83.9 fL (80.0-94.0); Mean Platelet Volume 10.2 fL (7.4-10.4); Platelet Count 168 10^3/uL (130-400); Red Blood Cell Count 3.67 10^6/uL (4.70-6.10); Red Cell Dist. Width 12.7 % (11.5-14.5); White Blood Cell Count 8.6 10^3/uL (4.8-10.8)
[2024-01-12 06:49] LABS: Blood Urea Nitrogen 30 mg/dl (9-20); Calcium 8.4 mg/dl (8.4-10.2); Carbon Dioxide 25 mmol/L (22-30); Chloride 99 mmol/L (98-107); Estimated Creatinine Clearance 58 ml/min; Glucose 103 mg/dl (70-99); Magnesium 2.2 mg/dl (1.6-2.3); Potassium 3.9 mmol/L (3.5-5.1); Sodium 136 mmol/L (135-145); eGFR > 60.00
[2024-01-12 06:50] VITALS: BP 111/56
[2024-01-12 06:53] LABS: Glucose - Point of Care 97 mg/dl (70-99)
--- NOTE | 2024-01-12 07:29 | PN.DE.MGMTRT ---
Insulin Management
- -
01/12/2024 Diabetes Management F/U:
Patient admitted for SOB, PMH COPD, CAD s/p CABG, carotid stenosis, PAD s/p LLE arteriogram with stent 01/07. Glucose on admission 290. Patient states 'pump was clogged'. Patient currently sees Dalton COLBERT with Dr. Cameron for ongoing diabetes care.
Prior to admission patient using Tandem pump, control IQ, Varisoft infusion set and novolog, with DexCom G6. Current infusion set removed from L abdomen, it is kinked. Tissue he has been using is on the left side of his abdomen, discolored,
ecchymotic and swollen, with a questionable fatty area adjacent. He states it is the only place he can see to put the infusion set. Reviewed appropriate alternate infusion site he should be able to see. He is reluctant to change.
01/09 Patient glucose down to 69 @ 9:23 pm last evening, treated then up to 77. Overnight glucose was 90 and 85. Discussed with patient that with new infusion site insulin is absorbing better will need to reduce basal rates. Updated reduced basal
rates:
12AM .65
3AM .55
10AM .6
12pm .5
24 hour basal total 13 units.
Patient was started on Farxiga per Dr. Shetty, cardiology.
01/10 Glucose fasting 55 venous, pre meal yesterday 82 to 102. Discussed with patient and friend that Farxiga does reduce the amount of insulin required. He is agreeable to further reduction of pump settings.
Reduce pump settings as follows:
Basal Correction Carb ratio Target
12am .45 50 15 110
3am .4 50 15 110
10am .5 50 15 110
12pm .4 50 15 110
01/11 No further episodes of hypoglycemia yesterday after pump settings were adjusted yesterday.
FBG 103 (V), 97 POC, premeal range 124 to 139. Will make no changes to pump settings
Will follow.
Diabetes History
- -
Type of Diabetes: 2 requiring insulin
Pre-Admission Diabetes Regimen
01/12/24
06:28
Creatinine 1.0
Lab Results
Hemoglobin A1c 8.1 % (4.0-5.6) H 01/09/24 10:07
Insulin Pump Settings
IP Diabetes Regimen
01/11/24 01/11/24 01/11/24
08:50 11:27 17:06
Glucose
POC Glucose 126 H 138 H 124 H
01/11/24 01/12/24 01/12/24
21:15 06:28 06:52
Glucose 103 H
POC Glucose 206 H 97
Meal type: Lunch
Meal type: Breakfast
Amount consumed: Patient refused
Amount consumed: 100%
Patient Education
--- NOTE | 2024-01-12 08:15 | W.PN.CD ---
Today's Communication / Plan
-
discharge with close cardiology follow up and cardiac rehab
Impression / Plan
-
BACKGROUND: 78M coronary artery disease status post CABG (08/2011), type 2 diabetes mellitus, COPD, dyslipidemia, PAD/PVD, and current smoker of both tobacco and marijuana who underwent left lower extremity arteriogram, balloon and stent in-stent
restenosis yesterday, 01/08/[address] Rosales who presented to the emergency department with a chief complaint of shortness of breath, found to have NSTEMI with occluded SVG-OM on [facility] 01/08 with severely elevated LV filling pressures.
Subjective: breathing improved today; no events on tele; Cr stable
NSTEMI
-Cath 01/08
-Culprit for NSTEMI potentially the occluded SVG-OM1, though the angiographic appearance of the occlusion is more chronic, without visible thrombus and with severe negative remodeling in the OM1 itself.
-s/p 48 hours heparin gtt
-cont ASA, Plavix
-metop consolidated to 50 qD
-cardiac rehab
Acute HFPEF
-echo EF 60-65%, Stage II DD, moderate MR/MS, moderate , nl RV, mild TR, PASP 45-50
-examines euvolemic today
-transitioned to lasix 40 PO qD
-added Farxiga (patient OK with cost)
-discussed home weight on discharge
CAD status post CABG 2011
-SMITH�LAD; SVG�OM1 now occluded
-plan as above
Moderate /MS
-needs close cardiology follow up with TTE q6-12 mo
Dyslipidemia
-LDL 68, he's ok with increasing to 40 atorva from 20 which will likely get him to goal <55
PAD s/p Left lower extremity arteriogram, balloon and stent in-stent restenosis 12/31/[address] Rosales, on DAPT (clopidogrel/ASA)
Type 2 diabetes mellitus, per primary service
Current tobacco use, cessation recommended
Medical marijuana, inhalation
Physical Exam
Vital Signs/Labs
Vital Signs
Temp Pulse Resp BP Pulse Ox
36.5 C 83 18 132/68 96
01/12/24 06:56 01/12/24 03:05 01/12/24 06:56 01/12/24 03:05 01/12/24 06:56
01/11/24 01/12/24 01/13/24
06:59 06:59 06:59
Actual Weight 68.6 kg 68.2 kg
01/12/24 06:28
01/12/24 06:28
APTT Cancelled 01/11/24 20:30
Magnesium 2.2 mg/dl (1.6-2.3) 01/12/24 06:28
Triglycerides 70 mg/dl (10-149) 01/11/24 05:09
LDL Cholesterol, Calc 68 mg/dl 01/11/24 05:09
VLDL Cholesterol, Calc 14 mg/dl (0-30) 01/11/24 05:09
HDL Cholesterol 64 mg/dl 01/11/24 05:09
01/09/24
05:45
Owd-I-Ixjwognurfo Pept 3730
LAB Results
01/09/24 01/09/24 01/09/24
14:40 15:00 18:00
Troponin I 20.600 H* Cancelled Cancelled
01/09/24 01/10/24 01/10/24
21:14 03:50 06:00
Troponin I 23.200 H* 22.300 H* Cancelled
Physical Exam
Constitutional: No acute distress
Cardiovascular: Rhythm & rate is regular, Pedal edema is absent, Systolic murmur absent and Diastolic murmur absent
Respiratory: Respiratory effort normal, Lungs clear to auscul. and Wheeze Absent
Neuro/Psych: AO x 3
Data Reviewed
-
Date of Service: January 12, 2024
Medical Decision Making: Reviewed Test Results
Labs: Labs Reviewed by me
[2024-01-12] MEDS: FARXIGA 10 MG PO (09:28)
[2024-01-12] MEDS: TOPROL XL 50 MG PO (09:28)
[2024-01-12] MEDS: ASPIR LOW (ENTERIC COATED) 81 MG PO (09:28)
[2024-01-12] MEDS: LASIX 40 MG PO (09:28)
[2024-01-12] MEDS: PLAVIX 75 MG PO (09:28)
[2024-01-12] MEDS: TOPROL XL PO (09:29)
[2024-01-12] MEDS: LASIX IV (09:29)
[2024-01-12] MEDS: LIPITOR PO (09:29)
[2024-01-12] MEDS: LIPITOR 40 MG PO (09:29)
--- NOTE | 2024-01-12 09:42 | W.PN.HOSP.TC ---
Addendum entered and electronically signed by Melissa Garcia MD 01/12/24 11:52:
total DC time 40 min
Original Note:
Today's Communication/Plan
-
DC home today
Assessment / Plan
Assessment / Plan
HPI: 78 yo M with PMH COPD, CAD s/p CABG, IDDM, carotid stenosis, PAD s/p Left lower extremity arteriogram/balloon/stent in-stent restenosis, p/w SOB with exertion.
He admits to smoking cigarette and medical marijuana.
He also c/o generalized lethargy and arm weakness. He denies to CP, fever, abd pain etc.
Per ED note, his insulin pumped got clogged so he has not had nightly insulin. Glucose currently 300.
A/P:
# SOB without hypoxia
COVID/Flu negative
Procal negative
CXR noted borderline prominent pulmonary vascularity, mild acute pulmonary edema versus acute CHF.
d dimer elevated, BL LE US neg for DVT, doubt PE with resolution of resp symptoms
# Elevated trop, due to ACS/NSTEMI
# h/o CAD s/p CABG
Troponin 2.4, peaked at 23
Echo: EF 60-65%. Mid to distal inferolateral and apical lateral akinesis/hypokinesis. Stage II diastolic dysfunction. Moderate mitral stenosis. Moderate mitral regurgitation.
s/p cath 01/09: noted Coronary artery disease status post-CABG with occluded SVG-OM1, patent SMITH-LAD, non-dominant RCA.
[facility] medical management of NSTEMI with 48 hours heparin drip, beta janet Toprol 25 mg BID added
Cont DAPT with ASA/Plavix as per vascular.
Increased Lipitor to 40 mg
Cardiology on board
# Acute HFPEF
echo EF 60-65%, Stage II DD, moderate MR/MS, moderate , nl RV, mild TR, PASP 45-50
lasix 40mg IV bid to 40 mg daily
added Farxiga (patient OK with cost)
# PAD s/p Left lower extremity arteriogram, balloon and stent in-stent restenosis
PT OT outpt therapy
# COPD
# IDDM with home use insulin pump
cover with ISS
Card control diet
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
# h/o carotid stenosis
# cigarette smoking
counselled on cessation
FC
Dispo: PT OT outpt therapy
DW SO at bedside
Anticipated Discharge: Today
Subjective/Interval History
-
Date of Service: January 12, 2024
Objective Data
-
Labs:
Laboratory Results
01/12/24
06:28
WBC 8.6
Hgb 10.9 L
Hct 30.8 L
Plt Count 168
Sodium 136
Potassium 3.9
Chloride 99
Carbon Dioxide 25
BUN 30 H
Creatinine 1.0
Glucose 103 H
Calcium 8.4
Vital Signs:
Vital Signs
Temp Pulse Resp BP Pulse Ox
36.5 C 89 18 111/56 96
01/12/24 06:56 01/12/24 09:00 01/12/24 06:56 01/12/24 06:50 01/12/24 06:56
I&O
01/11/24 01/12/24 01/13/24
06:59 06:59 06:59
Intake Total 240 / 240
Output Total 400 / 400
Balance -160 / -160
Review of Systems
-
All other systems: Reviewed and negative
Physical Exam
-
General: Well Developed, Well Nourished, No Apparent Distress and Comfortable; Negative Respiratory Distress
HEENT: Normocephalic, Atraumatic, Nose Appears Normal and Ears Appear Normal; Negative Oxygen
Respiratory: Clear to Auscultation and Non Labored Respirations; Negative Accessory Resp Muscle Use
Cardiac: Regular Rhythm and S1/S2
GI: Soft, Nontender, Nondistended and Normal Bowel Sounds
Musculoskeletal: Edema, Left Lower Extrem (mild)
Skin: Warm and Dry
Neuro: Awake, Alert and Oriented
Psych: Calm and Intact Judgement/Insight
Data Reviewed
-
Medical Tests (Nuc Med, Echo etc): Report Reviewed by me (echo, cath)
Labs: Labs Reviewed by me
--- NOTE | 2024-01-12 09:52 | PTOTSP ---
Therapist observed pt ambulating independently in hallway to [facility] without an assistive device. Asked pt if he would like to practice stairs, and he declined. He anticipates being discharged home today. Will sign off.
[2024-01-12] MEDS: PT'S OWN INSULIN PUMP - NovoLOG 1 UNIT SC (09:55)
--- NOTE | 2024-01-12 11:45 | W.DCSUMMARY ---
Discharge Summary
Discharge Data
Date of Admission: 01/09/24
Date of Discharge: 01/12/24
-
Pending Results: No
Hospital Course
Principal Diagnosis:
Dyspnea without hypoxia due to acute chest syndrome/NSTEMI and acute heart failure with preserved ejection fraction.
Chronic Diagnoses:�
Peripheral artery disease status post Left lower extremity arteriogram, balloon and stent in-stent restenosis
Chronic obstructive pulmonary disease
Insulin-dependent diabetes on insulin pump
History of carotid stenosis
cigarette smoking
Consultations:�
Cardiology
Diabetes nurse practitioner
Procedures:�
Cardiac cath 01/09: noted Coronary artery disease status post-CABG with occluded SVG-OM1, patent SMITH-LAD, non-dominant RCA.
Clinical course:�
This is a 78-year-old male, with past medical history as stated above, who presented with shortness of breath with exertion.
Problem 1:
Dyspnea without hypoxia due to acute chest syndrome/NSTEMI and acute heart failure with preserved ejection fraction.
His Troponin peaked at 23.
He underwent cardiac cath on 01/09, which noted Coronary artery disease status post-CABG with occluded SVG-OM1, patent SMITH-LAD, non-dominant RCA.
His echo showed EF 60-65%. Mid to distal inferolateral and apical lateral akinesis/hypokinesis. Stage II diastolic dysfunction. Moderate mitral stenosis. Moderate mitral regurgitation.
He was recommended medical management of his acute chest syndrome. He received heparin drip for 48 hours, and was started with beta-janet Toprol, discharged at 50 mg daily.
He can continue dual antiplatelet therapy aspirin/Plavix from prior to admission for his PAD.
His prior to admission Lipitor was increased from 10 to 40 mg.
He can follow-up with cardiology outpatient for cardiac rehab.
For his acute heart failure, he was treated with IV Lasix 40 mg twice daily while in the hospital, and was discharged with p.o. Lasix 40 mg daily.
Farxiga 10 mg daily was added which can be continued outpatient.
As for the rest of his medical problems, they were stable during her hospital stay.
Discharge Plan
-
Patient Disposition: Home with Home Care
Discharge Diagnosis/Procedures: Acute chest syndrome/non-ST elevation myocardial infarction status post cardiac cath, which noted extensive disease in previous bypass surgery;
Acute Heart failure with preserved ejection fraction
Condition: Fair
Diet: As tolerated, Low Fat, Low Cholesterol, Low Sodium and Restrict fluids to 48 oz
Activity: As tolerated
Driving Restrictions: As prior to admission
Wound Care: Wound Care Instructions
Mineral oil/Aquaphor to legs and feet daily after bathing.
Referrals:
Valarie Owusu CRNP [Family Provider] - in less than 1 week
Additional Discharge Medication Instructions: Continue aspirin/plavix.
Increased Lipitor to 40 mg daily
We have added the following for your heart failure:
Toprol 50 mg daily,
Farxiga 10 mg daily (for your heart failure),
Lasix 40 mg daily
Prescriptions:
New
atorvastatin 40 mg Tablet
40 mg PO DAILY Qty: 30 0RF
dapagliflozin propanediol 10 mg Tablet
10 mg PO DAILY Qty: 30 0RF
furosemide 40 mg Tablet
40 mg PO DAILY Qty: 30 0RF
metoprolol succinate 50 mg Tablet Extended Release 24 Hr
50 mg PO DAILY Qty: 30 0RF
Continued
clopidogrel 75 mg Tablet
75 mg PO DAILY Qty: 90 0RF
Patient Comments:
01/09/24 no pharamcy fills
nitroglycerin 0.4 mg Tablet, Sublingual
0.4 mg SUBLINGUAL [id number] PRN (Reason: Chest pain)
aspirin 81 mg Tablet,Delayed Release (Dr/Ec)
81 mg PO DAILY
Patient Own Insulin Pump
0 units SC .VIA PUMP NOVOLOG
docusate sodium [Colace] 100 mg Capsule
100 mg PO BIDPRN PRN (Reason: constipation)
Discontinued
atorvastatin 10 mg Tablet
10 mg PO DAILY
Medical Marijuana
1 dose PO DAILYPRN PRN (Reason: neuropathy, anxiety)
Discharge Orders:
Discharge Patient (As Directed); Ordered 01/12/24
Ordered By: Mleissa Garcia
Care Plan Goals
Care Plan Goals:
Problem: Readiness for enhanced knowledge related to diagnosis and treatment plan
Goal: Understand your diagnosis and treatment plan needs, including medications if applicable.
Instructions: Know your diagnosis, underlying causes and treatment plan options, including medications if applicable. Consult with your health care team to learn about your diagnosis and treatment plan, including medications if applicable.
Discharge Date and Time
Print Language: MARTINIQUAIS
--- NOTE | 2024-01-12 12:30 | CM ---
CM following for DC planning needs.
Pt. for DC today. VN Order noted.
Met w/ patient and sig. other at bedside. Offered VN, patient agrees to this.
Referral sent to [facility], awaiting response.
Plan is for home w/ [facility], if accepted.
--- NOTE | 2024-01-12 12:46 | PTCARENOTE ---
Pt seen by Raphael Garcia and Rima. Telemetry and IV device removed, insulin pump intact and in place. Discharge instructions reviewed with pt and his girlfriend regarding medications and their possible side effects, wound care, CHF guidelines, lab
test, reporting cares and concerns and follow up appt's. Pt given cardiology number to schedule appt with . Very good understanding verbalized. Pt will have VN at home. Pt escorted out via wheelchair and discharged to home.
== END 2024-01-12 12:10 | disposition home health service (06) | DRG 280 ==
LOC: IVU 08:25
PROVIDERS: Student in an Organized Health Care Education/Training Program; ADMITTING PHYSICIAN Internal Medicine; CONSULT PHYSICIAN Internal Medicine; EMERGENCY PHYSICIAN Emergency Medicine; FAMILY PHYSICIAN Nurse Practitioner Primary Care
PROC: B2181ZZ Fluoroscopy of Left Internal Mammary Bypass Graft using Low Osmolar Contrast (ICD-10-PCS; 2024-01-09)
PROC: 4A023N7 Measurement of Cardiac Sampling and Pressure, Left Heart, Percutaneous Approach (ICD-10-PCS; 2024-01-09)
PROC: B2111ZZ Fluoroscopy of Multiple Coronary Arteries using Low Osmolar Contrast (ICD-10-PCS; 2024-01-09)
DX: I21.4 Non-ST elevation (NSTEMI) myocardial infarction (principal); I50.33 Acute on chronic diastolic (congestive) heart failure; I25.810 Atherosclerosis of coronary artery bypass graft(s) without angina pectoris; E11.65 Type 2 diabetes mellitus with hyperglycemia; E11.40 Type 2 diabetes mellitus with diabetic neuropathy, unspecified; I08.0 Rheumatic disorders of both mitral and aortic valves; J44.9 Chronic obstructive pulmonary disease, unspecified; F12.90 Cannabis use, unspecified, uncomplicated; E11.51 Type 2 diabetes mellitus with diabetic peripheral angiopathy without gangrene; I25.10 Atherosclerotic heart disease of native coronary artery without angina pectoris; R53.1 Weakness; I11.0 Hypertensive heart disease with heart failure; E78.00 Pure hypercholesterolemia, unspecified; F17.210 Nicotine dependence, cigarettes, uncomplicated; Z96.41 Presence of insulin pump (external) (internal); Z60.2 Problems related to living alone; Z79.4 Long term (current) use of insulin; Z79.02 Long term (current) use of antithrombotics/antiplatelets; Z79.82 Long term (current) use of aspirin; Z95.1 Presence of aortocoronary bypass graft; Z11.52 Encounter for screening for COVID-19
CPT/HCPCS: 71045; 71046; 80048; 80053; 80061; 82962; 83036; 83735; 83880; 84145; 84484; 85025; 85027; 85379; 85730; 87502; 87811; 93005; 93306; 93459; 93970; 94640; 96374; 97163; 97166; 99285; 99406; C1894; Q9967

== ENCOUNTER → 2024-02-09 13:55 | Outpatient (REF) | payer OTHER, SELFPAY | LOC: RAD 13:55 | PROVIDERS: ATTENDING PHYSICIAN Surgery Vascular Surgery; FAMILY PHYSICIAN Internal Medicine Geriatric Medicine | DX: I73.9 Peripheral vascular disease, unspecified (principal) | CPT/HCPCS: 93922; 93925 ==

== ENCOUNTER → 2024-03-08 14:01 | Outpatient (REF) | payer OTHER, SELFPAY | LOC: RAD 14:01 | PROVIDERS: ATTENDING PHYSICIAN Surgery Vascular Surgery; FAMILY PHYSICIAN Internal Medicine Geriatric Medicine | DX: I65.23 Occlusion and stenosis of bilateral carotid arteries (principal) | CPT/HCPCS: 93880 ==

== ENCOUNTER → 2024-03-25 11:58 | Outpatient (REF) | payer OTHER, SELFPAY ==
[2024-03-25 13:04] LABS: HDL Cholesterol 59 mg/dl; LDL Cholesterol, Calculated 137 mg/dl; Total Cholesterol 212 mg/dl (50-199); Triglyceride 82 mg/dl (10-149); Very Low Density Lipoprotein 16 mg/dl (0-30)
== END ==
LOC: REG 11:58
PROVIDERS: ATTENDING PHYSICIAN Nurse Practitioner
DX: E78.5 Hyperlipidemia, unspecified (principal)
CPT/HCPCS: 36415; 80061

== ENCOUNTER 2024-05-04 08:45 | Emergency (ER) | payer OTHER, SELFPAY ==
[2024-05-04 08:48] VITALS: BP 151/74
--- NOTE | 2024-05-04 09:30 | ED.GENMED ---
History of Present Illness
General
Chief Complaint: Skin Problem
Source: patient
Time Seen by Provider: 05/04/24 09:10
History of Present Illness
History of Present Illness:
79-year-old male with past medical history of peripheral neuropathy secondary to diabetes, CAD, peripheral vascular and arterial disease presenting to the emergency department for evaluation of a blister on his right great toe that he noticed last
night, patient concerned that the blister could get worse and was unable to see his rd scientist today so came to the ER for further evaluation. Patient denies any fevers or infectious symptoms and states he did not have any trauma to the foot.
Overall he is unsure as to how this started. Patient has no other concerns at this time.
Past History
Past History
ED Past Medical History: CAD, COPD, HTN, Hypercholesterolemia and IDDM
ED Past Surgical History: Cardiac and Other
Patient has exhibited threatening behavior?: Yes
Date of threatening behavior? (updated with each occurrence): 10/20/22 (04/20/23)
Social History
Tobacco: Smoker
Alcohol: Daily
Drug: None
Personal:
Living: with family
Review of Systems
Review of Systems
All Other Systems: ROS reviewed and negative except as documented in HPI and ROS
Phy Exam
Physical Exam
Physical Exam:
GENERAL: Alert , in no apparent distress
EYE: conjunctiva clear
Head: Normocephalic atraumatic
NECK: Supple,
ENT: mmm.
LUNGS: no acute respiratory distress
NEUROLOGICAL: Alert and oriented
SKIN: Warm and dry, Moderate-sized clear fluid-filled blister over the dorsal aspect of the right great toe extending from the distal phalanx to the proximal phalanx. No surrounding erythema
MUSCULOSKELETAL: well perfused.
PSYCH: Normal and appropriate interaction.
Scores
Heart Failure Risk
Heart Failure Risk Score: Not Applicable
Heart Score for Chest Pain Patients
STEMI patient?: Not applicable
Withdrawal Assessment of Alcohol
Withdrawal Assessment Completed?: Not applicable
Course
Vital Signs
Initial and Last Documented VS:
Initial Vital Signs
Temp Pulse Resp BP Pulse Ox
98.5 F 81 18 151/74 98
05/04/24 08:48 05/04/24 08:48 05/04/24 08:48 05/04/24 08:48 05/04/24 08:48
Last Documented Vital Signs
Temp Pulse Resp BP Pulse Ox
98.5 F 81 18 151/74 98
05/04/24 08:48 05/04/24 08:48 05/04/24 08:48 05/04/24 08:48 05/04/24 08:48
Procedures
Incision/Drainage/Joint Aspiration
Right First Toe:
Preparation: cleaned with Hibiclens
Type of procedure: aspiration
Nature of site: other (Blister)
Description of abscess: greater than 3cm
Loculations broken up: No
How much fluid was obtained?: large amount
Fluid description: clear
Treatment: left open for drainage
MDM/Problems Addressed
Differential Diagnosis Includes:
Blister, abscess, cellulitis
MDM/Problems Addressed:
79-year-old male presenting to the ER for evaluation of blister to the right great toe. Blister was unroofed and drained without any complications. It was left open for continued drainage. None adherent dressing applied. Given patient's history
of diabetes and circulatory issues will cover with 5-day course of Keflex. Advised patient contact his rd scientist on Monday for follow-up visit. Advise daily dressing changes. Stable for discharge home and aware of return precautions.
*Pulse Oximetry
Patient hypoxic: no
*Critical Care Note
Total Time (30-74mins, 75-104mins- exclusive of procedures): Not Applicable
Data Reviewed
Review of Other/Old Records Reveals: Records
ED Attending Note
-
Portions of this chart may have been created with voice recognition software.� Occasional wrong word or��sound alike� substitutions may have occurred due to the inherent limitations of voice recognition software.
Discharge Plan
Departure
Patient Disposition: Home (Routine Discharge)
Date of Disposition: 05/04/24
Time of Disposition: 09:30
Patient with high blood pressure during this ER visit?: No
Discharge Problem:
Blister of great toe of right foot
Instructions: Blisters
Prescriptions:
New
cephalexin 500 mg tablet
500 mg PO BID 5 Days Qty: 10 0RF
No Action
clopidogrel 75 mg Tablet
75 mg PO DAILY Qty: 90 0RF
Patient Comments:
01/09/24 no pharamcy fills
nitroglycerin 0.4 mg Tablet, Sublingual
0.4 mg SUBLINGUAL [id number] PRN (Reason: Chest pain)
aspirin 81 mg Tablet,Delayed Release (Dr/Ec)
81 mg PO DAILY
Patient Own Insulin Pump
0 units SC .VIA PUMP NOVOLOG
docusate sodium [Colace] 100 mg Capsule
100 mg PO BIDPRN PRN (Reason: constipation)
atorvastatin 40 mg Tablet
40 mg PO DAILY Qty: 30 0RF
dapagliflozin propanediol 10 mg Tablet
10 mg PO DAILY Qty: 30 0RF
furosemide 40 mg Tablet
40 mg PO DAILY Qty: 30 0RF
metoprolol succinate 50 mg Tablet Extended Release 24 Hr
50 mg PO DAILY Qty: 30 0RF
Interventions
Interventions:
*Risk Screen - Suicide Last Done: 05/04/24 08:48
*General Assessment Last Done: 05/04/24 08:48
*Neglect/Abuse Screening Last Done: 05/04/24 09:57
ED- Fall Risk Assessment Last Done: 05/04/24 09:57
*ED COVID-19 Vaccine History Last Done: 05/04/24 08:48
*Nursing Disposition Last Done: 05/04/24 09:57
ED-Skin Assessment Last Done: 05/04/24 09:57
Discharge Date and Time
Discharge Date/Time: 05/04/24 10:06
Print Language: GEORGIAN
== END 2024-05-04 10:06 | disposition home or self-care (01) ==
LOC: EMR 08:45
PROVIDERS: EMERGENCY PHYSICIAN Emergency Medicine; FAMILY PHYSICIAN Internal Medicine Geriatric Medicine
DX: S90.421A Blister (nonthermal), right great toe, initial encounter (principal); X58.XXXA Exposure to other specified factors, initial encounter; E11.42 Type 2 diabetes mellitus with diabetic polyneuropathy; E78.00 Pure hypercholesterolemia, unspecified; I25.10 Atherosclerotic heart disease of native coronary artery without angina pectoris; J44.9 Chronic obstructive pulmonary disease, unspecified; I10 Essential (primary) hypertension; F17.200 Nicotine dependence, unspecified, uncomplicated; Z79.4 Long term (current) use of insulin
CPT/HCPCS: 10140; 99282

== ENCOUNTER → 2024-05-15 11:35 | Outpatient (REF) | payer OTHER, SELFPAY ==
[2024-05-15 12:32] LABS: % Basophils 0.2 % (0-2); % Eosinophils 2.9 % (0-6); % Immature Granulocytes 0.3 % (0-0.5); % Monocytes 7.4 % (1.7-9.3); % Neutrophils 77.2 % (42.2-75.2); Absolute Eosinophils 0.3 10^3/uL (0-0.7); Absolute Lymphocytes 1.1 10^3/uL (1.2-3.4); Absolute Monocytes 0.7 10^3/uL (0.1-0.6); Absolute Neutrophils 7.2 10^3/uL (1.4-6.5); Hematocrit 41.9 % (39.0-52.0); Hemoglobin 13.8 g/dL (13.0-18.0); Mean Corp Hgb Conc. 32.9 g/dL (33.0-37.0); Mean Corpuscular Hgb 29.4 pg (27.0-31.0); Mean Corpuscular Volume 89.1 fL (80.0-94.0); Mean Platelet Volume 9.7 fL (7.4-10.4); Nucleated Red Blood Cells % 0 % (-); Platelet Count 278 10^3/uL (130-400); Red Cell Dist. Width 13.2 % (11.5-14.5); White Blood Cell Count 9.4 10^3/uL (4.8-10.8)
[2024-05-15 13:02] LABS: Protein/creatinine Ratio 0.5; Urine Protein 47 mg/dl
[2024-05-15 13:04] LABS: Glycohemoglobin (HgbA1c) 8.4 % (4.0-5.6)
[2024-05-15 13:23] LABS: Microalbumin, Random Urine 25.8 mg/dl (0.6-1.7)
[2024-05-15 14:12] LABS: ALT (SGPT) 17 U/L (0-50); AST (SGOT) 25 U/L (17-59); Albumin 4.3 g/dl (3.5-5.0); Alkaline Phosphatase 95 U/L (38-126); Blood Urea Nitrogen 21 mg/dl (9-20); Calcium 9.3 mg/dl (8.4-10.2); Carbon Dioxide 27 mmol/L (22-30); Chloride 101 mmol/L (98-107); Glucose 102 mg/dl (70-99); HDL Cholesterol 63 mg/dl; LDL Cholesterol, Calculated 92 mg/dl; Potassium 4.5 mmol/L (3.5-5.1); Sodium 136 mmol/L (135-145); Total Bilirubin 0.8 mg/dl (0.2-1.3); Total Cholesterol 169 mg/dl (50-199); Total Protein 7.3 g/dl (6.3-8.2); Triglyceride 71 mg/dl (10-149); Very Low Density Lipoprotein 14 mg/dl (0-30); eGFR > 60.00
[2024-05-15 14:37] LABS: TSH 1.54 uIU/ml (0.47-4.68)
[2024-05-16 04:57] LABS: IgA 310 mg/dl (70-400)
[2024-05-17 23:41] LABS: tTG IgA Antibody 1.05 FLU (0.00-4.99)
== END ==
LOC: REG 11:35
PROVIDERS: ATTENDING PHYSICIAN Physician Assistant; FAMILY PHYSICIAN Internal Medicine Geriatric Medicine
DX: E10.65 Type 1 diabetes mellitus with hyperglycemia (principal)
CPT/HCPCS: 36415; 80053; 80061; 82043; 82570; 82784; 83036; 83516; 84156; 84443; 85025; 86231

== ENCOUNTER 2024-05-22 08:49 | Day surgery (SDC) | payer OTHER, SELFPAY ==
--- NOTE | 2024-05-17 13:52 | PTCARENOTE ---
Abn ECG, Dr. Grant made aware, no new interventions requested.
[2024-05-22] VITALS (26 sets, daily range): BP systolic 14–191; BP diastolic 46–131; BMI 21.4
[2024-05-22 09:25] LABS: INR 0.94
[2024-05-22 09:26] LABS: APTT 29.6 Sec (23.4-35.0)
[2024-05-22 09:43] LABS: Glucose - Point of Care 183 mg/dl (70-99)
[2024-05-22] MEDS: NSS 195 IV (09:45)
[2024-05-22 13:06] LABS: Glucose - Point of Care 93 mg/dl (70-99)
--- NOTE | 2024-05-22 16:08 | PTCARENOTE ---
Groin care has been reviewed multiple times. Pt insists on sitting up to eat and drink. Will not keep POX on. Spouse at bedside also trying to reinforce the post-op care instructions but pt is frustrated with the safety rules. Fortunately groin site
remains CDI. Great pulses and perfusion.VSS
--- NOTE | 2024-05-22 16:11 | W.SUR.POST ---
Surgical Immediate Post Op
Note
Pre Op Diagnosis: PAD
Post Op Diagnosis: PAD
Procedure Performed: RLE arteriogram, balloon angioplasty of right popliteal in-stent stenoses, left groin site closure with ProGlide
Primary Surgeon: Bobby
Anesthesia: local and sedation
Estimated Blood Loss: <2cc
Fluids: see anesthesia flow sheet
Drains/Shunts: none
Specimens/Cultures: none
Doppler/Duplex/Angio (Y/N): Y
Complications: none
Operative Findings: successful JACQUARD LACE WEAVER
[2024-05-22] MEDS: NSS 190 IV (16:13)
--- NOTE | 2024-05-22 17:02 | OR.RPT ---
Operative Report
Operative Report
PROCEDURE DATE: 05/22/2024
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
Postoperative diagnosis: Same
Procedure:
1. Duplex assisted left common femoral artery cannulation.
2. Aortogram and pelvic angiogram.
3. Right lower extremity arteriogram with third order vessel catheterization of right peroneal artery via left common femoral artery puncture.
4. Balloon angioplasty of right SFA in-stent restenosis x 3 and recurrent right popliteal artery stenosis with 5 mm angioplasty balloon.
5. Left femoral angiogram and Ayala Perclose percutaneous suture closure left common femoral artery.
6. Supervision and interpretation.
Surgeon: Bobby
Operating Room Surgical Technologist: None
Complications: None
Anesthesia: Local, sedation
Fluoroscopy:
10.5 min
50 mGy
13.3 Gy.cm2
Indications for procedure:
Chronic limb threatening ischemia right first toe with clear-cut ischemic changes and dry gangrene. Recurrent in-stent restenosis noted on ultrasound. Concern for inadequate circulation. Risk/benefit/alternatives of revascularization were all
fully discussed. Patient understood all wished to proceed.
Description of procedure:
Patient was identified, brought to the operating room. Placed on the table in the supine position. After the adequate administration of anesthesia, the patient was prepped and draped in the standard surgical fashion. A standard preoperative
timeout was undertaken and everybody was in agreement with the plan.
The left common femoral artery was accessed with a micropuncture kit under direct duplex ultrasound guidance. A 5 Hebrew sheath was then advanced over a 0.035 inch wire, and a martinez's hook catheter was advanced into the abdominal aorta.
Aortogram and pelvic angiogram was obtained. Findings as follows:
Infrarenal aorta: Patent with luminal irregularities. Significant atherosclerotic plaque that resulted in these luminal irregularities. May be a mild stenosis in the very distal infrarenal abdominal aorta.
Right common iliac artery: Patent with possible mild to moderate stenosis with atherosclerotic plaque proximally. Otherwise no significant stenosis.
Right external iliac artery: Patent with no significant stenosis.
Left common iliac artery: Patent with no significant stenosis.
Left external iliac artery: Patent with luminal irregularities, but no definitive stenosis.
Using a floppy angled hydrophilic wire, the right common femoral artery was cannulated and the catheter was advanced. Right lower extremity arteriogram was obtained. Findings as follows:
Common femoral artery: Patent with mid common femoral artery likely approximately 40 to 50% stenosis.
Profunda femoris artery: Patent with no definitive stenosis, but slightly difficult to see about a centimeter beyond the origin due to multiple branches.
Superficial femoral artery: Patent with mild luminal irregularities proximally, but no definitive stenosis. Then there was a stent with a mid severe near occlusive focal stenosis. The intervening segment between the stent and the second stent was
patent with no significant stenosis. The second stent had also significant mid stent severe near occlusive stenosis. The intervening segment to the third stent was without significant stenosis. Just some luminal irregularities. In the third
stent had severe diffuse stenosis in the proximal two thirds of the stent. Beyond here the above knee popliteal artery was patent with luminal irregularities. The behind knee popliteal artery which had prior been angioplastied had recurrent severe
string-like stenosis. Beyond here the below the knee popliteal artery was slightly small in stature but patent and gave rise to a single-vessel dominant anterior tibial artery runoff. The peroneal artery could be seen filling proximally as a very
diminutive string-like vessel but did not fill beyond the mid calf. There was reconstituted flow in the distal peroneal artery seen around the ankle. As noted the anterior tibial/dorsalis pedis was the dominant runoff vessel to the foot.
At this point, I selectively cannulated the right superficial femoral artery and then exchanged for a Storq wire and then an up and over 6 Hebrew sheath. The patient was given 5000 units of intravenous heparin. Next under roadmap assisted guidance
I was able to selectively cannulate the peroneal artery. This was done with a flopping of hydrophilic wire and a CXI catheter initially, and then I exchanged for a Storq wire. I now performed balloon angioplasty of all 3 in-stent restenosis as
well as the recurrent popliteal artery behind knee stenosis with 5 mm angioplasty balloon. Completion angiogram now demonstrated good result with no significant or severe residual stenosis. The behind knee popliteal segment had some mild residual
stenosis. There was luminal irregularities throughout the SFA however. There was brisk runoff flow filling into the anterior tibial. I then withdrew my sheath to the left proximal common iliac artery. I performed an angiogram to better image the
right common iliac artery and it appeared there was likely at least a 50% stenosis in the right common iliac artery but is difficult to see on two-dimensional fluoroscopy. I now withdrew my sheath to the left distal external iliac artery. Left
femoral angiogram demonstrated good puncture in the left common femoral artery. There was however a severe proximal SFA in-stent restenosis on the left side now noted. At this point, however, I felt that I could use a Perclose device. Therefore
the sheath was withdrawn and the Perclose delivery device was advanced and the suture closure was successfully performed. Hemostasis was completely achieved in the left groin and there was a good palpable femoral pulse. Upon completion the patient
had a 1+/2+ palpable right dorsalis pedis pulse, and a 1+ left dorsalis pedis pulse palpable.
The patient tolerated procedure well.
--- NOTE | 2024-05-22 18:06 | PTCARENOTE ---
Pt hypertensive post ambulatory. Refused to urinate. Denies high blood pressure. Dr Rosales notified. ' Pt was asymptomatic at the time of reporting. approved pt discharge ' with follow up w/PCP re hypertension'.
[2024-05-22 18:22] LABS: Glucose - Point of Care 137 mg/dl (70-99)
== END 2024-05-22 18:41 | disposition home or self-care (01) ==
LOC: CATH 08:49
PROVIDERS: ATTENDING PHYSICIAN Surgery Vascular Surgery; PRIMARYCARE PHYSICIAN Nurse Practitioner Primary Care
DX: I70.261 Atherosclerosis of native arteries of extremities with gangrene, right leg (principal); L97.519 Non-pressure chronic ulcer of other part of right foot with unspecified severity; E11.9 Type 2 diabetes mellitus without complications; I25.10 Atherosclerotic heart disease of native coronary artery without angina pectoris; I10 Essential (primary) hypertension; E78.5 Hyperlipidemia, unspecified; J44.9 Chronic obstructive pulmonary disease, unspecified; G47.33 Obstructive sleep apnea (adult) (pediatric); Z72.0 Tobacco use; Z95.1 Presence of aortocoronary bypass graft; Z79.82 Long term (current) use of aspirin; Z79.4 Long term (current) use of insulin; Z79.02 Long term (current) use of antithrombotics/antiplatelets; Z79.84 Long term (current) use of oral hypoglycemic drugs
CPT/HCPCS: 37224; C1725; C1894; C1769; 75625; 75710; 82962; 85610; 85730; 86850; 86900; 86901; 86920; C1760

== ENCOUNTER → 2024-06-24 15:04 | Outpatient (REF) | payer OTHER, SELFPAY | LOC: RAD 15:04 | PROVIDERS: ATTENDING PHYSICIAN Surgery Vascular Surgery; FAMILY PHYSICIAN Internal Medicine Geriatric Medicine | DX: I73.9 Peripheral vascular disease, unspecified (principal) | CPT/HCPCS: 93922; 93925 ==

== ENCOUNTER → 2024-12-04 10:34 | Outpatient (REF) | payer OTHER, SELFPAY ==
[2024-12-04 11:27] LABS: Hematocrit 37.3 % (39.0-52.0); Hemoglobin 12.5 g/dL (13.0-18.0); Mean Corp Hgb Conc. 33.5 g/dL (33.0-37.0); Mean Corpuscular Volume 87.8 fL (80.0-94.0); Nucleated Red Blood Cells % 0 % (-); Platelet Count 216 10^3/uL (130-400); Red Cell Dist. Width 13.3 % (11.5-14.5)
[2024-12-04 12:01] LABS: ALT (SGPT) 16 U/L (0-50); AST (SGOT) 25 U/L (17-59); Albumin 4.1 g/dl (3.5-5.0); Alkaline Phosphatase 63 U/L (38-126); Blood Urea Nitrogen 25 mg/dl (9-20); Calcium 9.2 mg/dl (8.4-10.2); Carbon Dioxide 25 mmol/L (22-30); Chloride 105 mmol/L (98-107); Glucose 99 mg/dl (70-99); HDL Cholesterol 58 mg/dl; LDL Cholesterol, Calculated 108 mg/dl; Potassium 4.8 mmol/L (3.5-5.1); Sodium 135 mmol/L (135-145); Total Protein 7.0 g/dl (6.3-8.2); Very Low Density Lipoprotein 12 mg/dl (0-30); eGFR > 60.00
[2024-12-04 12:27] LABS: TSH 1.58 uIU/ml (0.47-4.68)
[2024-12-04 12:51] LABS: Glycohemoglobin (HgbA1c) 7.8 % (4.0-5.6)
== END ==
LOC: REG 10:34
PROVIDERS: ATTENDING PHYSICIAN Physician Assistant; FAMILY PHYSICIAN Nurse Practitioner Primary Care
DX: E10.65 Type 1 diabetes mellitus with hyperglycemia (principal)
CPT/HCPCS: 36415; 80053; 80061; 83036; 84443; 85025

== ENCOUNTER → 2024-12-05 13:28 | Outpatient (REF) | payer OTHER, SELFPAY | LOC: RAD 13:28 | PROVIDERS: ATTENDING PHYSICIAN Surgery Vascular Surgery; FAMILY PHYSICIAN Internal Medicine Geriatric Medicine | DX: I65.23 Occlusion and stenosis of bilateral carotid arteries (principal); I73.9 Peripheral vascular disease, unspecified | CPT/HCPCS: 93880; 93922; 93925 ==